=== PATIENT | female | born 1990 | race Caucasian/White ===

== ENCOUNTER → 2018-07-07 15:24 | Outpatient (CLI) | payer OTHER, MEDICAID, SELFPAY ==
[2018-07-07 16:06] LABS: Hematocrit 34.9 % (36-46); Hemoglobin 11.8 g/dL (12.0-16.0); Mean Corpuscular HGB Conc 33.8 % (30-36); Mean Corpuscular Hemoglobin 31.4 PG (26-34); Mean Corpuscular Volume 92.9 fL (80-100); Platelet Count 181 X10^3/uL (150-400); Red Blood Cell Count 3.76 X10^6/uL (4.0-5.2); White Blood Cell Count 7.3 X10^3/uL (4.5-11.0)
[2018-07-07 16:23] LABS: Eosinophils Percent Auto 1.3 % (2-4); Lymphocytes Percent Auto 27.8 % (25-40); Neutrophils Percent Auto 66.4 % (50-75)
[2018-07-07 16:24] LABS: Add Manual Diff / Slide Review NO; Basophils Percent Auto 0.5 % (0-2); Neutrophils Absolute Auto 4700 /uL (1500-7000)
[2018-07-07 16:25] LABS: Appearance Urine UA CLEAR; Bilirubin Urine UA NEGATIVE (NEGATIVE); Color Urine UA YELLOW; Glucose Urine UA NEGATIVE (Normal); Ketones Urine UA 2+ (NEGATIVE); Leukocyte Esterase Urine UA NEGATIVE (NEGATIVE); Nitrite Urine UA NEGATIVE (Negative); Occult Blood Urine UA NEGATIVE (Negative); Protein Urine UA TRACE (Negative); Specific Gravity Urine UA >=1.030 (1.000-1.035); Urobilinogen Urine UA 0.2 E.U./dL (0.2)
[2018-07-07 16:55] LABS: Glucose 77 mg/dL (70-100)
[2018-07-07 17:37] LABS: Hepatitis B Surface Antigen NEGATIVE s/c (NEGATIVE); Rubella Antibody IgG 29.3 IU/mL (>15)
[2018-07-07 17:54] LABS: HIV 1 and 2 Antibody NEGATIVE (NEGATIVE); Hep C Virus Ab w/Reflex Quant NEGATIVE s/c (NEGATIVE)
[2018-07-09 14:07] LABS: HSV 2 IGG AB < 0.90 index (< 0.90)
[2018-07-09 19:32] LABS: RPR Screen Nonreactive (Nonreactive)
== END ==
DX: Z13.79 Encounter for other screening for genetic and chromosomal anomalies (principal); Z34.91 Encounter for supervision of normal pregnancy, unspecified, first trimester; Z34.81 Encounter for supervision of other normal pregnancy, first trimester
CPT/HCPCS: 36415; 80055; 81003; 82947; 83036; 84163; 84702; 86695; 86696; 86703; 86787; 86803; 86850; 86900; 86901; 87086

== ENCOUNTER → 2018-08-04 14:07 | Outpatient (CLI) | payer OTHER, MEDICAID, SELFPAY | PROVIDERS: PCP Specialist | DX: Z34.82 Encounter for supervision of other normal pregnancy, second trimester (principal); Z3A.16 16 weeks gestation of pregnancy | CPT/HCPCS: 36415; 82105; 82677; 84163; 84702; 86336 ==

== ENCOUNTER → 2018-12-08 11:33 | Outpatient (CLI) | payer OTHER, MEDICAID, SELFPAY ==
[2018-12-09 16:24] LABS: Strep Grp B PCR NEG for Grp B Strep
== END ==
PROVIDERS: PCP Specialist
DX: Z34.83 Encounter for supervision of other normal pregnancy, third trimester (principal); Z3A.35 35 weeks gestation of pregnancy
CPT/HCPCS: 87653

== ENCOUNTER 2019-01-12 06:06 | Inpatient (IN) | payer OTHER, MEDICAID, SELFPAY ==
[2019-01-12] MEDS: OXYTOCIN PREMIX 30 UNIT/500 ML PLAST..BAG IV (07:15)
[2019-01-12] MEDS: LACTATED RINGERS 1,000 ML 100 ML IV ×2 (07:15→14:10)
[2019-01-12 07:32] LABS: Add Manual Diff / Slide Review NO; Basophils Absolute Auto 0 /uL (0-100); Basophils Percent Auto 0.4 % (0-2); Eosinophils Absolute Auto 200 /uL (0-450); Eosinophils Percent Auto 1.6 % (2-4); Hematocrit 29.5 % (36-46); Lymphocytes Absolute Auto 2400 /uL (1100-4500); Lymphocytes Percent Auto 24.7 % (25-40); Mean Corpuscular HGB Conc 33.9 % (30-36); Mean Corpuscular Hemoglobin 31.1 PG (26-34); Mean Corpuscular Volume 91.7 fL (80-100); Monocytes Absolute Auto 700 /uL (0-900); Monocytes Percent Auto 6.8 % (3-14); Neutrophils Absolute Auto 6400 /uL (1500-7000); Neutrophils Percent Auto 66.5 % (50-75); Platelet Count 139 X10^3/uL (150-400); Red Blood Cell Count 3.22 X10^6/uL (4.0-5.2); Red Cell Distribution Width 13.2 % (11.6-14.8); White Blood Cell Count 9.6 X10^3/uL (4.5-11.0)
[2019-01-12 09:52] VITALS: BP 120/79
--- NOTE | 2019-01-12 12:19 | PM.OBHP.1 ---
OB HPI Date/Time Date of admission: 01/12/19 Date Patient Seen: 01/12/19 Time Patient Seen: 10:00 History of Present Condition Chief complaint: EVALUATION OF LABOR - INDUCTION : 2 Para: 1 Estimated Date of Delivery: 01/11/19 Estimated Gestational Age (weeks): 40 wee Narrative: Mariam Das is a 28 year old female who presents today at 40 weeks of for induction of labor. Her cervix was 2+ cm dilated 80% effaced vertex minus two station with the cervix mid anterior and soft. Indications Indication for induction OB: maternal discomfort and history of rapid labor History of Present care: good care Dating criteria: LMP confirmed by 1st trimester US Ultrasounds: normal 1st trimester US and normal mid trimester US Obstetrical complications: none Medical complications: none Narrative: Patient is a 28-year-old two para one with an uneventful . Her total weight gain was 22 lb. She had normal fundal growth. Her blood pressures remained normotensive. Her urines remain negative for glucose and protein. Preadmission Labs Blood type: 0 (-) negative -: Antibody screen: negative, Cystic fibrosis screen: unknown, GBS status: negative, HBsAG: negative, HIV: negative, HSV 1: negative, HSV 2: negative and RPR/VDLR: negative -: Chlamydia screen: detected (Negative) and Gonorrhea screen: detected (Negative) -: Rubella: immune and Varicella: immune HCT: 29 HCAB: negative PAP: Normal Integrated screen: Negative Sequential screen: Negative 1 hr GTT: 149 Evaluation Evaluation Baseline heart rate: 140 Variability: Average (6-10) monitor accelerations: Present monitor decelerations: Absent Contraction Frequency (minutes): 3 Uterine Contraction Intensity: Mild Category of Tracing: I Cervical dilation (cm): 2 Cervical effacement (%): 80 station: -2 Laboratory results: Laboratory Tests 01/12/19 01/12/19 07:10 07:10 WBC 9.6 RBC 3.22 L Hgb 10.0 L Hct 29.5 L MCV 91.7 MCH 31.1 MCHC 33.9 RDW 13.2 Plt Count 139 L Neut % (Auto) 66.5 Lymph % (Auto) 24.7 L [place] % (Auto) 6.8 Eos % (Auto) 1.6 L Baso % (Auto) 0.4 Neut # (Auto) 6400 Lymph # (Auto) 2400 [place] # (Auto) 700 Eos # (Auto) 200 Baso # (Auto) 0 Blood Type B Negative Antibody Screen Negative Comments: Membranes ruptured with amnio hook [facility] Social History Smoking Status: Current every day smoker Social History Smoking Status: Current every day smoker Meds Home Medications Medication Instructions Recorded Confirmed Type 1 tab PO DAILY 07/07/18 01/12/19 History vitamin,calcium,xcteljly-yxod-trclk acid tablet Allergies Allergy/AdvReac Type Severity Reaction Status Date / Time No Known Drug Allergies Allergy Verified 01/12/19 09:54 Review of Systems Review of Systems All systems reviewed & are unremarkable except as noted in HPI and below Exam Vital Signs (past 8 hours): - 01/12/19 09:52 Blood Pressure 120/79 Const General: cooperative and healthy appearing [facility] Head: normal to inspection Ears: hearing grossly normal bilaterally Nose: external nose normal Face and sinus: normal facial exam Mouth: oral mucosae normal, lip normal, tongue normal and moist mucous membranes Teeth and gingiva: dentition normal Throat: posterior oropharynx normal Eyes General: appearance normal, both eyes and all related structures Neck Neck: normal visual inspection and full ROM Chest Chest: normal inspection of the chest and normal palpation of entire chest wall Breast inspection: normal inspection of the breasts and normal inspection of the axillae Breast Palpation: normal palpation of the breasts and normal palpation of the axillae Resp Effort & Inspection: normal respiratory effort Auscultation: clear to auscultation bilaterally Cardio Palpation: normal PMI Rate: regular rate Rhythm: regular rhythm Heart Sounds: S1 normal and S2 normal GI Inspection: normal to inspection Palpation: soft and no hepatosplenomegaly Percussion: normal to percussion Auscultation: normal bowel sounds OB/External & Speculum: external exam normal Manual OB Exam: dilated 2, effaced 50% and station -2 Uterus Location (Fundal Height): 40 Presentation: vertex Estimated Weight (lbs): 7 Amniotic Fluid: clear Back/Spine/Pelvis Thoracic/Lumbar Spine: thoracic and lumbar spine normal to inspection Skin General: no rashes or lesions noted Neuro General: alert, oriented x3, tone normal and moves all extremities Cognition: normal cognition Speech: speech normal Gait: normal gait Motor: muscle tone normal throughout Sensory Exam: no sensory deficits noted Extrem General: normal to inspection and normal exam except as noted Psych Appearance: grossly normal and well kempt Mental Status: mental status grossly normal Speech and Movement: speech and movement normal Objective Labs Result Diagrams: 01/12/19 07:10 Labs: Laboratory Results - last 24 hr 01/12/19 01/12/19 07:10 07:10 WBC 9.6 RBC 3.22 L Hgb 10.0 L Hct 29.5 L MCV 91.7 MCH 31.1 MCHC 33.9 RDW 13.2 Plt Count 139 L Neut % (Auto) 66.5 Lymph % (Auto) 24.7 L [place] % (Auto) 6.8 Eos % (Auto) 1.6 L Baso % (Auto) 0.4 Neut # (Auto) 6400 Lymph # (Auto) 2400 [place] # (Auto) 700 Eos # (Auto) 200 Baso # (Auto) 0 Blood Type B Negative Antibody Screen Negative Assessment and Plan Assessment and Plan Assessment and Plan narrative: Term intrauterine 40 weeks Living in the [facility] long distance from the hospital Favorable cervix with Garcia score of eight Plan is for Pitocin induction of labor and artificial rupture
--- NOTE | 2019-01-12 12:30 | P.HPOB_ITS ---
OB HPI Date/Time Date of admission: 01/12/19 Date Patient Seen: 01/12/19 Time Patient Seen: 10:00 History of Present Condition Chief complaint: EVALUATION OF LABOR - INDUCTION : 2 Para: 1 Estimated Date of Delivery: 01/11/19 Estimated Gestational Age (weeks): 40 wee Narrative: Mariam Das is a 28 year old female who presents today at 40 weeks of for induction of labor. Her cervix was 2+ cm dilated 80% effaced vertex minus two station with the cervix mid anterior and soft. Indications Indication for induction OB: maternal discomfort and history of rapid labor History of Present care: good care Dating criteria: LMP confirmed by 1st trimester US Ultrasounds: normal 1st trimester US and normal mid trimester US Obstetrical complications: none Medical complications: none Narrative: Patient is a 28-year-old two para one with an uneventful . Her total weight gain was 22 lb. She had normal fundal growth. Her blood pressures remained normotensive. Her urines remain negative for glucose and protein. Preadmission Labs Blood type: 0 (-) negative -: Antibody screen: negative, Cystic fibrosis screen: unknown, GBS status: negative, HBsAG: negative, HIV: negative, HSV 1: negative, HSV 2: negative and RPR/VDLR: negative -: Chlamydia screen: detected (Negative) and Gonorrhea screen: detected (Negative) -: Rubella: immune and Varicella: immune HCT: 29 HCAB: negative PAP: Normal Integrated screen: Negative Sequential screen: Negative 1 hr GTT: 149 Evaluation Evaluation Baseline heart rate: 140 Variability: Average (6-10) monitor accelerations: Present monitor decelerations: Absent Contraction Frequency (minutes): 3 Uterine Contraction Intensity: Mild Category of Tracing: I Cervical dilation (cm): 2 Cervical effacement (%): 80 station: -2 Laboratory results: Laboratory Tests 01/12/19 01/12/19 07:10 07:10 WBC 9.6 RBC 3.22 L Hgb 10.0 L Hct 29.5 L MCV 91.7 MCH 31.1 MCHC 33.9 RDW 13.2 Plt Count 139 L Neut % (Auto) 66.5 Lymph % (Auto) 24.7 L [place] % (Auto) 6.8 Eos % (Auto) 1.6 L Baso % (Auto) 0.4 Neut # (Auto) 6400 Lymph # (Auto) 2400 [place] # (Auto) 700 Eos # (Auto) 200 Baso # (Auto) 0 Blood Type B Negative Antibody Screen Negative Comments: Membranes ruptured with amnio hook [facility] Social History Smoking Status: Current every day smoker Social History Smoking Status: Current every day smoker Meds Home Medications Medication Instructions Recorded Confirmed Type 1 tab PO DAILY 07/07/18 01/12/19 History vitamin,calcium,putirqsu-aalu-gjusw acid tablet Allergies Allergy/AdvReac Type Severity Reaction Status Date / Time No Known Drug Allergies Allergy Verified 01/12/19 09:54 Review of Systems Review of Systems All systems reviewed & are unremarkable except as noted in HPI and below Exam Vital Signs (past 8 hours): - 01/12/19 09:52 Blood Pressure 120/79 Const General: cooperative and healthy appearing [facility] Head: normal to inspection Ears: hearing grossly normal bilaterally Nose: external nose normal Face and sinus: normal facial exam Mouth: oral mucosae normal, lip normal, tongue normal and moist mucous membranes Teeth and gingiva: dentition normal Throat: posterior oropharynx normal Eyes General: appearance normal, both eyes and all related structures Neck Neck: normal visual inspection and full ROM Chest Chest: normal inspection of the chest and normal palpation of entire chest wall Breast inspection: normal inspection of the breasts and normal inspection of the axillae Breast Palpation: normal palpation of the breasts and normal palpation of the axillae Resp Effort & Inspection: normal respiratory effort Auscultation: clear to auscultation bilaterally Cardio Palpation: normal PMI Rate: regular rate Rhythm: regular rhythm Heart Sounds: S1 normal and S2 normal GI Inspection: normal to inspection Palpation: soft and no hepatosplenomegaly Percussion: normal to percussion Auscultation: normal bowel sounds OB/External & Speculum: external exam normal Manual OB Exam: dilated 2, effaced 50% and station -2 Uterus Location (Fundal Height): 40 Presentation: vertex Estimated Weight (lbs): 7 Amniotic Fluid: clear Back/Spine/Pelvis Thoracic/Lumbar Spine: thoracic and lumbar spine normal to inspection Skin General: no rashes or lesions noted Neuro General: alert, oriented x3, tone normal and moves all extremities Cognition: normal cognition Speech: speech normal Gait: normal gait Motor: muscle tone normal throughout Sensory Exam: no sensory deficits noted Extrem General: normal to inspection and normal exam except as noted Psych Appearance: grossly normal and well kempt Mental Status: mental status grossly normal Speech and Movement: speech and movement normal Objective Labs Result Diagrams: 01/12/19 07:10 Labs: Laboratory Results - last 24 hr 01/12/19 01/12/19 07:10 07:10 WBC 9.6 RBC 3.22 L Hgb 10.0 L Hct 29.5 L MCV 91.7 MCH 31.1 MCHC 33.9 RDW 13.2 Plt Count 139 L Neut % (Auto) 66.5 Lymph % (Auto) 24.7 L [place] % (Auto) 6.8 Eos % (Auto) 1.6 L Baso % (Auto) 0.4 Neut # (Auto) 6400 Lymph # (Auto) 2400 [place] # (Auto) 700 Eos # (Auto) 200 Baso # (Auto) 0 Blood Type B Negative Antibody Screen Negative Assessment and Plan Assessment and Plan Assessment and Plan narrative: Term intrauterine 40 weeks Living in the [facility] long distance from the hospital Favorable cervix with Garcia score of eight Plan is for Pitocin induction of labor and artificial rupture
--- NOTE | 2019-01-12 16:05 | PM.OBPNLAB ---
Date/Time Date Patient Seen: 01/12/19 Time Patient Seen: 16:05 Pain Control Pain control: tolerating well and epidural Pelvic Exam Dilation (cm): 6 Effacement (%): 100 station: 0 Amniotic membrane status: Ruptured Comments: good progress Contractions Contractions on admission: regular Monitor mode: External Pitocin rate (mU/min): 18 Contraction frequency (min): 2 Contraction duration (min): 60 Contraction pattern: Regular Contraction phase: Resting Contraction intensity: Strong/Firm Status status: Category l Heart Rate Baseline: 140 Monitor Accelerations: Present Monitor Decelerations: Absent Monitor Variability: Moderate Assessment and Plan Assessment: active labor Plan: continuous present management
--- NOTE | 2019-01-12 17:43 | PM.OBPRVD ---
Delivery date: 01/12/19 Intrapartal events: None Cervical ripening method: none Induction method: per pitocin protocol Delivery augmentation: rupture of membranes Delivery monitor: external FHT and external uterine Route of delivery: L&D Laceration Description: None Estimated blood loss (mL): 300 Anesthesia type: Epidural Complications: none Narrative: The patient is a 28-year-old two para one. Patient is at 40 weeks one day. Patient had a favorable cervix and lives in [facility]. Patient was admitted for induction of labor. Pitocin was begun. Membranes are ruptured approximately 10:00 a.m.. Patient made good progress to complete. At 5 cm and epidural was placed. Patient pushed once and delivered a live-born male infant with scores of nine at 1 minutes and nine at 5 minutes in good condition. Cord blood was obtained. Cord had three vessels. There is a nuchal cord x2. There were no cervical vaginal or perineal lacerations. Estimated blood loss is 300 cc Plan for aftercare: Routine
[2019-01-12] MEDS: NICOTINE 7 MG PATCH TOP (20:50)
[2019-01-13 05:37] LABS: Hematocrit 25.7 % (36-46); Hemoglobin 8.7 g/dL (12.0-16.0)
[2019-01-13] MEDS: IBUPROFEN 600 MG TABLET PO ×2 (06:11→12:31)
[2019-01-13] MEDS: DOCUSATE 250 MG CAPSULE PO (07:28)
[2019-01-13] MEDS: PRENATAL VIT,CALC/IRON/FOLIC 1 TABLET 1 TAB PO (07:28)
--- NOTE | 2019-01-13 10:27 | P.DS_ITS ---
Discharge Providers Date of admission: 01/12/19 06:06 Discharge Date: 01/13/19 Primary care physician: Birgit Coburn MD Consults: 01/12/19 19:12 Consult to Global Marketing Coordinator Routine Comment: Discharge provider: Eduar Mendes MD Summary Date Patient Seen: 01/13/19 Time Patient Seen: 10:22 Procedures: Induction of labor Spontaneous vaginal delivery Hospital Course: The patient is a 28-year-old two now para two who was admitted for elective induction of labor because of distance from the hospital at term with a favorable cervix. Patient's Garcia score was eight. Pitocin was begun. Membranes are ruptured. The fluid was clear. Epidural catheter was placed. Patient made progress to complete and with one push delivered spontaneously an 8 lb 9 oz live-born male with scores of nine at 1 minute nine at 5 minutes in good condition. The placenta delivered spontaneously. Cord had three vessels. Estimated blood loss was 300 cc. There were no cervical vaginal or perineal tears. Post delivery the patient did well. She remained afebrile stable vital signs. She was progressively element and ambulated. She was discharged home for follow-up in six weeks in [place] Peripartum Data Infant Delivery Method: Natural Vaginal Laceration description: None Procedures: Spontaneous vaginal delivery Induction of labor Epidural anesthesia complications: none Status at Discharge Cognitive/behavioral status at discharge: oriented Functional status at discharge: independent ambulation Overall status at discharge: patient is progressing back to baseline Time Spent with Patient Total time spent providing and/or coordinating discharge services: Less than 30 minutes Objective Labs Result Diagrams: 01/13/19 05:14 Labs: Laboratory Results - last 24 hr 01/13/19 05:14 Hgb 8.7 L Hct 25.7 L Exam Vital Signs (past 8 hours): Fundus U minus two Lochia scant Extremities without edema Discharge Plan Discharge Plan Patient Disposition: Home Discharge comment: Follow-up in [place] the Friday the 02 of March Discharge Med Rec/Prescriptions Prescriptions: New Dermoplast (with menthol) 20-0.5 % Aerosol 1 spray topical Q1HR PRN (Reason: perineal pain) Qty: 1 RF: 0 hydrocodone-acetaminophen 5-325 mg Tablet 1 tab PO Q4HR Qty: 10 RF: 0 ibuprofen 600 mg Tablet 600 mg PO Q6HR PRN (Reason: Pain, Mild (1-3)) Qty: 14 RF: 0 docusate sodium 250 mg Capsule 250 mg PO DAILY Qty: 10 RF: 0 Ksu-D-Dmwrpe Cream 1 applic topical PRN PRN (Reason: Tenderness) Qty: 1 RF: 0 ferrous gluconate 324 mg (38 mg iron) Tablet 324 mg PO DAILY Qty: 60 RF: 0 Continued prenat.vits,bianca,trk-agvd-lxphf tablet 1 tab PO DAILY RF: 0 Follow up/Referrals: Birgit Coburn MD [Primary Care Provider] - Eduar Mendes MD [Physician] - 03/02/19 Provider Discharge Instructions Diet: Diet as Tolerated Activity: Up ad pam Skin/Wound/Dressing Care Report to your healthcare provider any signs of infection, such as:: chills, fever, increased pain, unusual drainage and unusual redness Discharge Data Primary Care Provider: Birgit Coburn Attending Provider: Eduar Mendes Admit Date/Time: 01/12/19 06:06
[2019-01-13 12:58] VITALS: BP 128/82; PULSE 73; RESP 16; TEMP 37.2
== END 2019-01-13 16:25 | disposition home or self-care (01) | DRG 560 ==
PROVIDERS: PCP Specialist
DX: O26.813 Pregnancy related exhaustion and fatigue, third trimester (principal); O69.81X0 Labor and delivery complicated by cord around neck, without compression, not applicable or unspecified; Z3A.40 40 weeks gestation of pregnancy; Z37.0 Single live birth
CPT/HCPCS: 01967; 36415; 59050; 59409; 85014; 85018; 85025; 86850; 86900; 86901; J2590

== ENCOUNTER → 2025-04-26 13:50 | Outpatient (CLI) | payer OTHER, SELFPAY ==
[2025-04-26 14:36] LABS: Add Manual Diff / Slide Review NO; Hematocrit 36.2 % (36-46); Hemoglobin 12.5 g/dL (12.0-16.0); Lymphocytes Absolute Auto 2600 /uL (1100-4500); Mean Corpuscular HGB Conc 34.4 % (30-36); Mean Corpuscular Hemoglobin 30.1 PG (26-34); Mean Corpuscular Volume 87.5 fL (80-100); Platelet Count 217 X10^3/uL (150-400)
== END ==
PROVIDERS: PCP Specialist; Referring Provider Registered Nurse; Visit Provider Registered Nurse
DX: Z79.899 Other long term (current) drug therapy (principal)
CPT/HCPCS: 36415; 80159; 85025

== ENCOUNTER 2025-05-03 11:28 | Emergency (ER) | payer OTHER, SELFPAY ==
[2025-05-03] VITALS (17 sets, daily range): BP systolic 128–167; BP diastolic 67–93; PULSE 80–105; RESP 10–20; TEMP 36.9–37.1; O2SAT 94–100; BMI 35.4
--- NOTE | 2025-05-03 11:57 | EKG_ITS ---
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
--- NOTE | 2025-05-03 11:57 | DI.RAD.S_ITS ---
PROCEDURE: XR CHEST 1V INDICATIONS: chest pain TECHNIQUE: One view of the chest was acquired. COMPARISON: None. FINDINGS: Mild bilateral perihilar and lower lobe peribronchial thickening, some of which may be related expiratory result; however, bronchitis, viral infection, asthma or other process should be considered. Mild dextroscoliosis. Cardiopericardial silhouette and pulmonary vasculature within normal limits. No pneumothorax, no pleural effusion, no lobar consolidation. IMPRESSION: Mild peribronchial thickening as discussed above. If symptoms persist or worsen, or there is high clinical suspicion of thoracic abnormality, CT chest could be performed. Dictated by: Luc Bennett M.D. on 05/03/2025 at 12:59 Approved by: Luc Bennett M.D. on 05/03/2025 at 13:02
--- NOTE | 2025-05-03 12:06 | ED.ABDPAIN ---
HPI - Abdominal Pain <Birgit María, - Last Filed: 05/04/25 07:48> General Chief Complaint: Abdominal Pain Stated Complaint: N/V numbness left side of face, chest pain Time Seen by Provider: 05/03/25 11:56 Source: patient Mode of arrival: Ambulatory History of Present Illness HPI narrative: Patient is a 34-year-old female history of PTSD, depression, methamphetamine use presenting today with her mother with left-sided numbness nausea vomiting chest pain and ongoing abdominal pain. Initially mom and patient were concerned she might be she has not had her menstrual period since October but taken multiple home tests that were all negative. She has had nausea abdominal pain which really have continued and today she has some left-sided numbness on her left face left arm and left leg. No significant weakness. She has been hospitalized at [facility]. She has had significant reactions to medications in the past causing hallucinations anxieties and auditory hallucinations. She has recently been started on fluphenazine buspirone duloxetine along with clozapine these all and started last month. She is followed closely by [facility] and pact team they actually called our emergency department when they received her ED report concern that some of her symptoms maybe caused by medication. Related Data Home Medications ?Medication ?Instructions ?Recorded ?Confirmed prenat.vits,bianca,[id number] 1 tab PO DAILY 07/07/18 03/02/19 Previous Rx's ?Medication ?Instructions ?Recorded benzocaine 20 %-menthol 0.5 % 1 spray topical Q1HR PRN perineal 01/13/19 topical aerosol (Dermoplast (with pain #1 g menthol)) docusate sodium 250 mg capsule 250 mg PO DAILY #10 caps 01/13/19 ferrous gluconate 324 mg (38 mg 324 mg PO DAILY #60 tabs 01/13/19 iron) tablet ibuprofen 600 mg tablet 600 mg PO Q6HR PRN Pain, Mild 01/13/19 (1-3) #14 tabs lanolin (Gsd-I-Uzfwoe topical 1 applic topical PRN PRN 01/13/19 cream) Tenderness #1 g apixaban 5 mg (74 tabs) tablets in 5 mg PO BID #74 ea 05/03/25 a dose pack (Eliquis DVT-PE Treat 30D Start) Allergies Allergy/AdvReac Type Severity Reaction Status Date / Time ibuprofen Allergy Hives Verified 05/03/25 11:36 Patient History <Birgit Daniel, DO - Last Filed: 05/04/25 07:48> Social History Smoking Status: Current every day smoker Smoking Status: Current every day smoker tobacco type: vaping Exam <Birgit Danile, DO - Last Filed: 05/04/25 07:48> Initial Vital Signs Initial Vital Signs: Vital Signs Temperature 98.7 F 05/03/25 11:35 Pulse Rate 105 H 05/03/25 11:35 Respiratory Rate 20 05/03/25 11:35 Blood Pressure 140/87 05/03/25 11:35 Pulse Oximetry 95 05/03/25 11:35 Oxygen Delivery Method Room Air 05/03/25 11:35 GENERAL: Alert well-appearing 34-year-old female and in no acute distress. HEENT: Head atraumatic,EOMI, pupils reactive, face symmetric, moist mucous membranes CARDIOVASCULAR: Regular rate and rhythm without murmurs, rubs or gallops. RESPIRATORY: Breath sounds equal bilaterally, no wheezes rales or rhonchi. ABDOMEN: Soft, nontender. Normoactive bowel sounds all 4 quadrants. No guarding or rebound. EXTREMITIES: Normal range of motion, no clubbing or edema. Neurovascularly intact NEUROLOGICAL: Alert and oriented x4.Normal gait and speech. Cranial nerves II through XII grossly intact. No ataxia is decreased sensation left face left arm left leg SKIN: Warm, dry, no laceration, no petechiae, no rashes or lesions. <Jerod Snow, DO - Last Filed: 05/03/25 17:13> Initial Vital Signs Initial Vital Signs: Vital Signs Temperature 98.7 F 05/03/25 11:35 Pulse Rate 105 H 05/03/25 11:35 Respiratory Rate 20 05/03/25 11:35 Blood Pressure 140/87 05/03/25 11:35 Pulse Oximetry 95 05/03/25 11:35 Oxygen Delivery Method Room Air 05/03/25 11:35 Scores <Birgit Daniel DO - Last Filed: 05/04/25 07:48> NIH Stroke Scale Level of Conciousness: Alert, keenly responsive Ask month/age: Answers both questions correctly. Open/close eyes, close hand: Performs both tasks correctly Best gaze horizontal: Normal Visual rubio: No visual loss Facial palsy: Normal symetrical movement Left arm drift: No drift for full 10 sec Right arm drift: No drift for full 10 sec Left leg drift: No drift for full 5 sec Right leg drift: No drift for full 5 sec Limb ataxia: Absent Sensory on face/arms/legs: Mild to moderate sensory loss, can tell touch Best language: No aphasia, normal Dysarthria: Normal Extinction or inattention: No abnormality Total NIH Stroke scale score: 1 Course <Birgit Daniel, - Last Filed: 05/04/25 07:48> Orders Ordered: Discontinued Medications Apixaban (Apixaban 5 Mg Tablet) 5 mg PO NOW ONE Stop: 05/03/25 16:23 Last Admin: 05/03/25 16:32 Dose: 5 mg Documented By: EB Buprenorphine/Naloxone (Buprenorphine/Naloxone 8mg/2mg 1 Tab) 1 tab SL DAILY TRANG Famotidine (Famotidine 20 Mg Tablet) 20 mg PO BEDTIME TRANG Sodium Chloride (Normal Saline 0.9%) 1,000 mls @ 1,000 mls/hr IV BOLUS ONE Stop: 05/03/25 15:15 Last Infusion: 05/03/25 17:35 Dose: Infused Documented By: Admin: 05/03/25 14:29 Dose: 1,000 mls/hr Documented By: EB Acetaminophen (Ofirmev) 1,000 mg in 100 mls @ 400 mls/hr IV NOW ONE Stop: 05/03/25 14:31 Last Infusion: 05/03/25 15:11 Dose: Infused Documented By: Admin: 05/03/25 14:29 Dose: 400 mls/hr Documented By: EB Lorazepam (Lorazepam 2 Mg/Ml Inj) 1 mg IV NOW ONE Stop: 05/03/25 14:17 Last Admin: 05/03/25 14:29 Dose: 1 mg Documented By: EB Lorazepam (Lorazepam 2 Mg/Ml Inj) 1 mg IV NOW ONE Stop: 05/03/25 16:26 Last Admin: 05/03/25 16:33 Dose: 1 mg Documented By: EB Non-Formulary Medication (Suboxone) 8 mg SL TID TRANG Non-Formulary Medication (Fluphenazine) 10 mg PO DAILY TRANG Clozaril 200 Mg (Tablet) 200 mg PO DAILY@1700 TRANG Fluphenazine 10 Mg (Tablet) 10 mg PO DAILY@1700 TRANG Suboxone 8mg/2mg Sl (Film) 1 mg SL TID TRANG Last Admin: 05/03/25 16:32 Dose: 1 mg Documented By: EB Vital Signs Vital signs: Vital Signs - 8 hr 05/03/25 11:35 05/03/25 13:37 05/03/25 13:38 Temperature 98.7 F Pulse Rate 105 H 105 H Respiratory Rate 20 Blood Pressure 140/87 137/73 Pulse Oximetry 95 95 Oxygen Delivery Method Room Air <Jerod Snow, DO - Last Filed: 05/03/25 17:13> Orders Ordered: Discontinued Medications Apixaban (Apixaban 5 Mg Tablet) 5 mg PO NOW ONE Stop: 05/03/25 16:23 Last Admin: 05/03/25 16:32 Dose: 5 mg Documented By: EB Buprenorphine/Naloxone (Buprenorphine/Naloxone 8mg/2mg 1 Tab) 1 tab SL DAILY [facility] Famotidine (Famotidine 20 Mg Tablet) 20 mg PO BEDTIME [facility] Sodium Chloride (Normal Saline 0.9%) 1,000 mls @ 1,000 mls/hr IV BOLUS ONE Stop: 05/03/25 15:15 Last Infusion: 05/03/25 17:35 Dose: Infused Documented By: Admin: 05/03/25 14:29 Dose: 1,000 mls/hr Documented By: EB Acetaminophen (Ofirmev) 1,000 mg in 100 mls @ 400 mls/hr IV NOW ONE Stop: 05/03/25 14:31 Last Infusion: 05/03/25 15:11 Dose: Infused Documented By: Admin: 05/03/25 14:29 Dose: 400 mls/hr Documented By: EB Lorazepam (Lorazepam 2 Mg/Ml Inj) 1 mg IV NOW ONE Stop: 05/03/25 14:17 Last Admin: 05/03/25 14:29 Dose: 1 mg Documented By: EB Lorazepam (Lorazepam 2 Mg/Ml Inj) 1 mg IV NOW ONE Stop: 05/03/25 16:26 Last Admin: 05/03/25 16:33 Dose: 1 mg Documented By: TANESHA Non-Formulary Medication (Suboxone) 8 mg SL TID [facility] Non-Formulary Medication (Fluphenazine) 10 mg PO DAILY [facility] Clozaril 200 Mg (Tablet) 200 mg PO DAILY@1700 [facility] Fluphenazine 10 Mg (Tablet) 10 mg PO DAILY@1700 [facility] Suboxone 8mg/2mg Sl (Film) 1 mg SL TID [facility] Last Admin: 05/03/25 16:32 Dose: 1 mg Documented By: TANESHA Vital Signs Vital signs: Vital Signs - 8 hr 05/03/25 11:35 05/03/25 13:37 05/03/25 13:38 Temperature 98.7 F Pulse Rate 105 H 105 H Respiratory Rate 20 Blood Pressure 140/87 137/73 Pulse Oximetry 95 95 Oxygen Delivery Method Room Air MDM - Abdominal Pain <Birgit Daniel DO - Last Filed: 05/04/25 07:48> Lab Data 05/03/25 12:35 05/03/25 12:35 Labs: Lab Results 05/03/25 05/03/25 05/03/25 Range/Units 12:00 12:35 12:38 WBC 6.2 (4.5-11.0) X10^3/uL RBC 4.14 (4.0-5.2) X10^6/uL Hgb 12.3 (12.0-16.0) g/dL Hct 36.3 (36-46) % MCV 87.8 (80-100) fL MCH 29.6 (26-34) PG MCHC 33.8 (30-36) % RDW 12.9 (11.6-14.8) % Plt Count 189 (150-400) X10^3/uL Neut % (Auto) 62.9 (50-75) % Lymph % (Auto) 25.1 (25-40) % [place] % (Auto) 6.9 (3-14) % Eos % (Auto) 4.7 H (2-4) % Baso % (Auto) 0.4 (0-2) % Neut # (Auto) 3900 (0965-1124) /uL Lymph # (Auto) 1600 (4841-0288) /uL [place] # (Auto) 400 (0-900) /uL Eos # (Auto) 300 (0-450) /uL Baso # (Auto) 0 (0-100) /uL PT 11.8 (9.4-12.5) SECONDS INR 1.0 (0.9-1.3) APTT 32 (25.1-36.5) SECONDS Sodium 135 L (137-145) mmol/L Potassium 4.6 (3.4-5.1) mmol/L Chloride 102 (98-107) mmol/L Carbon Dioxide 24 (22-32) mmol/L BUN 10 (7-17) mg/dL Creatinine 0.63 (0.52-1.04) mg/dL Estimated GFR > 60 (>60) mL/min BUN/Creatinine Ratio 15.9 (6-22) Glucose 131 H (70-99) mg/dL Calcium 9.1 (8.4-10.2) mg/dL Magnesium 1.6 (1.6-2.3) mg/dL Total Bilirubin 0.2 (0.2-1.3) mg/dL AST 27 (14-36) IU/L ALT 13 (<35) IU/L Alkaline Phosphatase 64 (38-126) U/L Troponin I < 0.012 (0.01-0.034) ng/mL NT-Pro-B Natriuret Pep 190 H (<125) pg/mL Total Protein 7.4 (6.3-8.2) g/dL Albumin 4.2 (3.5-5.0) g/dL Globulin 3.2 (1.7-4.1) g/dL Albumin/Globulin Ratio 1.3 (1.0-2.8) Lipase 83 (23-300) U/L Salicylates < 1.0 (<20) mg/dL U Opiates 300ng/mL cut Negative (Negative) Ur Oxycodone Screen Negative (Negative) Urine Methadone Screen Negative (Negative) Acetaminophen < 10 (10-30) ug/mL Ur Barbiturates Screen Negative (Negative) U Tricyclic Antidepress Negative (Negative) Ur Phencyclidine Scrn Negative (Negative) Ur Amphetamines Screen Negative (Negative) U Methamphetamines Scrn Negative (Negative) Ur MDMA Scrn (Ecstasy) Negative (Negative) U Benzodiazepines Scrn Negative (Negative) Urine Cocaine Screen Negative (Negative) U Marijuana (THC) Screen Negative (Negative) Urine pH Normal (Normal) Urine Specific [place] Normal (Normal) Ethyl Alcohol < 10 (<10) mg/dL Ur Creatinine Normal (Normal) Point of care testing: Point of Care Testing Test Results Negative Urine Dip Bedside Urine Glucose Negative Bedside Urine Bilirubin - Negative Bedside Urine Ketone - Negative Urine Specific [place] 1.010 Bedside Urine Occult Blood - Negative Bedside Urine pH 6.5 Bedside Urine Protein - Negative Bedside Urine Urobilinogen - Negative Bedside Urine Nitrite - Negative Bedside Urine Leukocytes + 70 Esterase Imaging Data Chest x-ray: Radiologist's Impression: PROCEDURE: XR CHEST 1V INDICATIONS: chest pain TECHNIQUE: One view of the chest was acquired. COMPARISON: None. FINDINGS: Mild bilateral perihilar and lower lobe peribronchial thickening, some of which may be related expiratory result; however, bronchitis, viral infection, asthma or other process should be considered. Mild dextroscoliosis. Cardiopericardial silhouette and pulmonary vasculature within normal limits. No pneumothorax, no pleural effusion, no lobar consolidation. IMPRESSION: Mild peribronchial thickening as discussed above. If symptoms persist or worsen, or there is high clinical suspicion of thoracic abnormality, CT chest could be performed. Dictated by: Luc Bennett M.D. on 05/03/2025 at 12:59 CT scan - abdomen/pelvis: Radiologist's Impression: PROCEDURE: CT ABDOMEN PELVIS W CON INDICATIONS: ab pain on going nausea TECHNIQUE: After the administration of intravenous contrast, axial sections acquired from the lung bases to the pubic symphysis. Coronal and sagittal reformats were performed. For radiation dose reduction, the following was used: automated exposure control, adjustment of mA and/or kV according to patient size. COMPARISON: [facility], CT, CT ABDOMEN PELVIS WITH CONTRAST, 10/30/2022, 19:45. FINDINGS: Image quality: Diagnostic. Lower Chest: No significant findings. Small incidental hiatal hernia. Dependent atelectasis is noted. Right lower lobar and segmental pulmonary artery filling defects are noted. Possible segmental pulmonary artery filling defects in the left lower lobe. ABDOMEN: Liver: No solid mass. Gallbladder: No radiopaque gallstones or wall thickening. Biliary ducts: No biliary dilation. Pancreas: No ductal dilation. Spleen: Size is within normal limits. Adrenal Glands: No adrenal nodules. Kidneys and Ureters: No hydronephrosis. No solid mass. No complex renal cystic lesion which requires follow up. Stomach and Bowel: Normal colonic caliber, without significant wall thickening. Peritoneum: No abnormal intraperitoneal fluid. No free air. Ventral Wall: No significant ventral hernia. Abdominal Nodes: No retroperitoneal or mesenteric adenopathy by size criteria. Vessels: Aorta and inferior vena cava are normal in size. PELVIS: Pelvic Organs: Unremarkable. Bladder: No bladder wall thickening, accounting for underdistention. Pelvic Nodes: No enlarged lymph nodes. Miscellaneous: No inguinal hernias are seen. Bones: No aggressive osseous abnormality. Dextroscoliosis of the lower thoracic spine noted. IMPRESSION: No acute abnormality in abdomen or pelvis. Right lower lobar and segmental pulmonary artery filling defects. Possible subsegmental left lower lobe pulmonary artery filling defects. Imaging findings consistent with multifocal pulmonary emboli. Recommend CT pulmonary angiogram for more definitive evaluation of thrombus burden. Imaging findings and recommendations discussed with the ordering clinician at 3:11 p.m. On 05/03/2025. Dictated by: Yecenia Wagner M.D. on 05/03/2025 at 14:59 CT scan - head: Radiologist's Impression: PROCEDURE: CT HEAD/BRAIN WO CON INDICATIONS: left side numbness TECHNIQUE: Noncontrast 4.5 mm thick angled axial sections acquired from the foramen magnum to the vertex, with coronal and sagittal reformats. For radiation dose reduction, the following was used: automated exposure control, adjustment of mA and/or kV according to patient size. COMPARISON: [facility], CT, CT HEAD WITHOUT CONTRAST, 10/30/2022, 19:45. FINDINGS: Image quality: Diagnostic. CSF spaces: Basal cisterns are patent. No extra-axial fluid collections. Ventricles are normal in size and shape. Brain: No midline shift. No intracranial mass effect or hemorrhage. [place]-white matter interface is normal. Skull and face: Calvarium and visualized facial bones are intact, without suspicious lesions. Sinuses: Visualized sinuses and mastoids are clear. IMPRESSION: No imaging explanation is found for this patient's presenting symptoms. To the limits of this noncontrast study, no findings of intracranial masses or mass effect can be seen. No acute intracranial hemorrhage is seen. If there is strong clinical suspicion for an acute stroke, please consider a brain MRI for further evaluation, as it is more sensitive (assuming that there is no contraindication to MRI). Dictated by: Matt Mcpherson M.D. on 05/03/2025 at 13:59 ECG Data Attestation: I personally reviewed and interpreted this ECG as follows: Prior ECG tracings: not available for review Interpretation: Sinus rhythm rate 106 DC interval 148 QRS 84 QTC 470 no prolongation of QRS or QTC no arrhythmia or ischemia present no priors to compare MDM Narrative Medical decision making narrative: MDM CC: Left-sided numbness nausea vomiting Complicating co-morbidities: PTSD, mental health issues Data collected from: Patient, mother, records from [facility] Medical records reviewed: Records from [facility] reviewed Differential considered: Medication reaction gastroenteritis possible CVA anxiety Exam documented above, pertinent findings include: Alert well-appearing 34-year-old female mild abdominal discomfort no specific localization of pain she does have some decreased sensation on her left arm and leg NIH of 1 Lab Test results independently reviewed as above. Pertinent findings: CBC no leukocytosis no anemia no thrombocytopenia CMP sodium slightly low 135 potassium and other electrolytes within normal limits creatinine 0.63 no MAX glucose 131 Bilirubin liver enzymes within normal limits lipase 83 Troponin negative BNP is 190 Independently reviewed EKG as above Sinus rhythm without abnormality Imaging studies independently reviewed: CT abdomen pelvis shows pulmonary embolism in lower lobe but no abdominal abnormality Chest x-ray peribronchial thickening Head CT no intracranial process Consultations: Attempted to talk to [facility] nurse in regards to medication. Initially the nurse called us in the emergency department I tried to call her back and left a voicemail. Mom states that these medications she is actually doing pretty well with but not having any severe side effects or hallucinations Treatments: IV Tylenol fluids and lorazepam, patient took her own Suboxone Re-evaluations: [ ] Discussion: Patient 34-year-old female history of mental health presenting today with left-sided numbness she has no weakness or vision changes. She had an NIH of 1 low suspicion for CVA but still possible. Initial noncontrasted head CT was negative. Blood work is overall reassuring she really has no abnormalities. Surprisingly her abdominal CT does show lower segmental pulmonary emboli. Dedicated CT chest was ordered. Unclear at this time why she would have pulmonary emboli. She is not on control she was hospitalized 10 months ago. She has been home for 3 weeks. Patient signed out to Dr. Snow, for further disposition All lab work, vital signs, nurse triage note, medication list, previous ER visits, and all imaging studies reviewed. CTA showed positive for lobar segmental and subsegmental right upper middle and lower lobe pulmonary emboli. Subsegmental left upper lobe. Pulmonary emboli negative heart strain. Patchy areas of ground-glass opacities in the bilateral lobe due to multifocal pulmonary emboli or infection. CT head showed no acute process. CT abdomen and pelvis showed no acute process. Ultrasound lower leg did not show any DVT. Patient given Ativan Eliquis here and will be discharged on Eliquis. <Jerod Snow, DO - Last Filed: 05/03/25 17:13> Lab Data Labs: Lab Results 05/03/25 05/03/25 05/03/25 Range/Units 12:00 12:35 12:38 WBC 6.2 (4.5-11.0) X10^3/uL RBC 4.14 (4.0-5.2) X10^6/uL Hgb 12.3 (12.0-16.0) g/dL Hct 36.3 (36-46) % MCV 87.8 (80-100) fL MCH 29.6 (26-34) PG MCHC 33.8 (30-36) % RDW 12.9 (11.6-14.8) % Plt Count 189 (150-400) X10^3/uL Neut % (Auto) 62.9 (50-75) % Lymph % (Auto) 25.1 (25-40) % [place] % (Auto) 6.9 (3-14) % Eos % (Auto) 4.7 H (2-4) % Baso % (Auto) 0.4 (0-2) % Neut # (Auto) 3900 (1593-8173) /uL Lymph # (Auto) 1600 (1941-0985) /uL [place] # (Auto) 400 (0-900) /uL Eos # (Auto) 300 (0-450) /uL Baso # (Auto) 0 (0-100) /uL PT 11.8 (9.4-12.5) SECONDS INR 1.0 (0.9-1.3) APTT 32 (25.1-36.5) SECONDS Sodium 135 L (137-145) mmol/L Potassium 4.6 (3.4-5.1) mmol/L Chloride 102 (98-107) mmol/L Carbon Dioxide 24 (22-32) mmol/L BUN 10 (7-17) mg/dL Creatinine 0.63 (0.52-1.04) mg/dL Estimated GFR > 60 (>60) mL/min BUN/Creatinine Ratio 15.9 (6-22) Glucose 131 H (70-99) mg/dL Calcium 9.1 (8.4-10.2) mg/dL Magnesium 1.6 (1.6-2.3) mg/dL Total Bilirubin 0.2 (0.2-1.3) mg/dL AST 27 (14-36) IU/L ALT 13 (<35) IU/L Alkaline Phosphatase 64 (38-126) U/L Troponin I < 0.012 (0.01-0.034) ng/mL NT-Pro-B Natriuret Pep 190 H (<125) pg/mL Total Protein 7.4 (6.3-8.2) g/dL Albumin 4.2 (3.5-5.0) g/dL Globulin 3.2 (1.7-4.1) g/dL Albumin/Globulin Ratio 1.3 (1.0-2.8) Lipase 83 (23-300) U/L Salicylates < 1.0 (<20) mg/dL U Opiates 300ng/mL cut Negative (Negative) Ur Oxycodone Screen Negative (Negative) Urine Methadone Screen Negative (Negative) Acetaminophen < 10 (10-30) ug/mL Ur Barbiturates Screen Negative (Negative) U Tricyclic Antidepress Negative (Negative) Ur Phencyclidine Scrn Negative (Negative) Ur Amphetamines Screen Negative (Negative) U Methamphetamines Scrn Negative (Negative) Ur MDMA Scrn (Ecstasy) Negative (Negative) U Benzodiazepines Scrn Negative (Negative) Urine Cocaine Screen Negative (Negative) U Marijuana (THC) Screen Negative (Negative) Urine pH Normal (Normal) Urine Specific [place] Normal (Normal) Ethyl Alcohol < 10 (<10) mg/dL Ur Creatinine Normal (Normal) Point of care testing: Point of Care Testing Test Results Negative Urine Dip Bedside Urine Glucose Negative Bedside Urine Bilirubin - Negative Bedside Urine Ketone - Negative Urine Specific [place] 1.010 Bedside Urine Occult Blood - Negative Bedside Urine pH 6.5 Bedside Urine Protein - Negative Bedside Urine Urobilinogen - Negative Bedside Urine Nitrite - Negative Bedside Urine Leukocytes + [address] scan - chest: Radiologist's Impression: [address] [address] [address] Scan Report Signed Patient: Mariam Das MR#: [id number] : 1990 Acct:[id number] Age/Sex: 34 / F Date of Service: 05/03/25 Loc: ED Accession Number: [id number] Procedure: CT angio chest PE protocol Ordering Provider: Birgit Daniel D.O. PROCEDURE: CT ANGIO CHEST PE PROTOCOL INDICATIONS: PE on ab ct TECHNIQUE: After the administration of intravenous contrast, 2 mm thick sections acquired from the pulmonary apices to the posterior costophrenic angles. 3-dimensional maximum intensity projection (MIP) coronal and sagittal reformats were then acquired through the thorax. For radiation dose reduction, the following was used: automated exposure control, adjustment of mA and/or kV according to patient size. COMPARISON: None. FINDINGS: Image quality: Diagnostic. Pulmonary arteries: Segmental and subsegmental pulmonary emboli are noted in the left upper lobe. Moderate volume lobar, segmental and subsegmental pulmonary emboli are noted in the right upper, middle and lower lobes. No dilation of the right ventricle in aorta. Lower Neck: No enlarged lymph nodes. Thyroid: No thyroid nodules which require sonographic follow up, per consensus guidelines. Axillae: No enlarged lymph nodes. Chest Wall: Unremarkable. Bones: Unremarkable. Dextroscoliosis of the lower thoracic spine noted. Lungs and Pleura: No pneumothorax or pleural effusions. No concerning lung nodules. Paraseptal emphysema noted in the posterior right upper lobe. Patchy areas of peribronchovascular and subpleural ground-glass opacities are noted in both lower lobes. Heart: Heart size is normal. No pericardial effusion. Thoracic Vessels: No aortic aneurysm. Mediastinum and [place]: No enlarged lymph nodes. Esophagus: No wall thickening. Small hiatal hernia. Upper Abdomen: Visualized upper abdomen solid organs and bowel loops appear normal. IMPRESSION: Positive for lobar, segmental and subsegmental right upper, middle and lower lobe pulmonary emboli. Subsegmental left upper lobe pulmonary emboli. Negative for heart strain. Patchy areas of ground-glass opacities in the bilateral lower lobe to be due to multifocal pulmonary emboli or infection/inflammation. Correlate with symptoms. MDM Narrative Medical decision making narrative: STACEY CC: [ ] Complicating co-morbidities: [ ] Data collected from: [ ] Medical records reviewed: [ ] Differential considered: [ ] Exam documented above, pertinent findings include: [ ] Lab Test results independently reviewed as above. Pertinent findings: [ ] Independently reviewed EKG as above Imaging studies independently reviewed: Consultations: [ ] Treatments: [ ] Re-evaluations: [ ] Discussion:[ ] All lab work, vital signs, nurse triage note, medication list, previous ER visits, and all imaging studies reviewed. CTA showed positive for lobar segmental and subsegmental right upper middle and lower lobe pulmonary emboli. Subsegmental left upper lobe. Pulmonary emboli negative heart strain. Patchy areas of ground-glass opacities in the bilateral lobe due to multifocal pulmonary emboli or infection. CT head showed no acute process. CT abdomen and pelvis showed no acute process. Ultrasound lower leg did not show any DVT. Patient given Ativan Eliquis here and will be discharged on Eliquis. Discharge Plan Departure Patient Disposition: Home Clinical Impression: Pulmonary embolism Qualifiers: Pulmonary embolism type: other Chronicity: acute Acute cor pulmonale presence: without acute cor pulmonale Qualified Code(s): I26.99 - Other pulmonary embolism without acute cor pulmonale Instructions: DI for Pulmonary Embolism Activity Restrictions/Additional Instructions: Return with new or worsening symptoms. Take your medicines directed. Follow up with PCP 1-2 weeks for recheck. Prescriptions: New Eliquis DVT-PE Treat 30D Start 5 mg (74 tabs) tablets,dose pack 5 mg PO BID Qty: 74 0RF No Action prenat.vits,bianca,jzs-chgh-ggxth tablet 1 tab PO DAILY Dermoplast (with menthol) 20-0.5 % Aerosol 1 spray topical Q1HR PRN (Reason: perineal pain) Qty: 1 0RF ibuprofen 600 mg Tablet 600 mg PO Q6HR PRN (Reason: Pain, Mild (1-3)) Qty: 14 0RF docusate sodium 250 mg Capsule 250 mg PO DAILY Qty: 10 0RF Vhd-M-Jmgzvm Cream 1 applic topical PRN PRN (Reason: Tenderness) Qty: 1 0RF ferrous gluconate 324 mg (38 mg iron) Tablet 324 mg PO DAILY Qty: 60 0RF Stand Alone Forms: Patient Portal/API
[2025-05-03 12:26] LABS: UR Morphine/Opiate cutoff 300 Negative (Negative); Ur Specific Gravity Normal (Normal); Urine MDMA Negative (Negative); Urine Methamphetamines Negative (Negative); Urine Tetrahydrocannabinol Negative (Negative); Urine Tricyclic Antidepressant Negative (Negative)
[2025-05-03 12:42] LABS: Add Manual Diff / Slide Review NO; Hematocrit 36.3 % (36-46); Hemoglobin 12.3 g/dL (12.0-16.0); Lymphocytes Absolute Auto 1600 /uL (1100-4500); Mean Corpuscular HGB Conc 33.8 % (30-36); Mean Corpuscular Hemoglobin 29.6 PG (26-34); Mean Corpuscular Volume 87.8 fL (80-100); Platelet Count 189 X10^3/uL (150-400)
[2025-05-03 13:07] LABS: Acetaminophen < 10 ug/mL (10-30); Ethanol (ETOH) < 10 mg/dL (<10); Salicylate < 1.0 mg/dL (<20)
[2025-05-03 13:31] LABS: Alanine Aminotransferase 13 IU/L (<35); Albumin 4.2 g/dL (3.5-5.0); Albumin Globulin Ratio 1.3 (1.0-2.8); Alkaline Phosphatase 64 U/L (38-126); Blood Urea Nitrogen 10 mg/dL (7-17); Calcium 9.1 mg/dL (8.4-10.2); Carbon Dioxide 24 mmol/L (22-32); Chloride 102 mmol/L (98-107); Estimated Glomerular Filt Rate > 60 mL/min (>60); Globulin 3.2 g/dL (1.7-4.1); Glucose 131 mg/dL (70-99); HEMOLYSIS < 15 (0-50); Lipase 83 U/L (23-300); Magnesium 1.6 mg/dL (1.6-2.3); Potassium 4.6 mmol/L (3.4-5.1); Sodium 135 mmol/L (137-145); Total Protein 7.4 g/dL (6.3-8.2)
[2025-05-03 13:42] LABS: NT-proBNP (BNP-Adult 18+) 190 pg/mL (<125); Troponin I < 0.012 ng/mL (0.01-0.034)
[2025-05-03] MEDS: SODIUM CHLORIDE 0.9% 1,000 ML 1000 ML IV (14:29)
[2025-05-03] MEDS: ACETAMINOPHEN IV 1,000 MG/100 ML VIAL 400 MG IV (14:29)
--- NOTE | 2025-05-03 14:33 | DI.CT.S_ITS ---
PROCEDURE: CT ABDOMEN PELVIS W CON INDICATIONS: ab pain on going nausea TECHNIQUE: After the administration of intravenous contrast, axial sections acquired from the lung bases to the pubic symphysis. Coronal and sagittal reformats were performed. For radiation dose reduction, the following was used: automated exposure control, adjustment of mA and/or kV according to patient size. COMPARISON: [facility], CT, CT ABDOMEN PELVIS WITH CONTRAST, 10/30/2022, 19:45. FINDINGS: Image quality: Diagnostic. Lower Chest: No significant findings. Small incidental hiatal hernia. Dependent atelectasis is noted. Right lower lobar and segmental pulmonary artery filling defects are noted. Possible segmental pulmonary artery filling defects in the left lower lobe. ABDOMEN: Liver: No solid mass. Gallbladder: No radiopaque gallstones or wall thickening. Biliary ducts: No biliary dilation. Pancreas: No ductal dilation. Spleen: Size is within normal limits. Adrenal Glands: No adrenal nodules. Kidneys and Ureters: No hydronephrosis. No solid mass. No complex renal cystic lesion which requires follow up. Stomach and Bowel: Normal colonic caliber, without significant wall thickening. Peritoneum: No abnormal intraperitoneal fluid. No free air. Ventral Wall: No significant ventral hernia. Abdominal Nodes: No retroperitoneal or mesenteric adenopathy by size criteria. Vessels: Aorta and inferior vena cava are normal in size. PELVIS: Pelvic Organs: Unremarkable. Bladder: No bladder wall thickening, accounting for underdistention. Pelvic Nodes: No enlarged lymph nodes. Miscellaneous: No inguinal hernias are seen. Bones: No aggressive osseous abnormality. Dextroscoliosis of the lower thoracic spine noted. IMPRESSION: No acute abnormality in abdomen or pelvis. Right lower lobar and segmental pulmonary artery filling defects. Possible subsegmental left lower lobe pulmonary artery filling defects. Imaging findings consistent with multifocal pulmonary emboli. Recommend CT pulmonary angiogram for more definitive evaluation of thrombus burden. Imaging findings and recommendations discussed with the ordering clinician at 3:11 p.m. On 05/03/2025. Dictated by: Yecenia Wagner M.D. on 05/03/2025 at 14:59 Approved by: Yecenia Wagner M.D. on 05/03/2025 at 15:11
--- NOTE | 2025-05-03 14:33 | DI.CT.S_ITS ---
PROCEDURE: CT HEAD/BRAIN WO CON INDICATIONS: left side numbness TECHNIQUE: Noncontrast 4.5 mm thick angled axial sections acquired from the foramen magnum to the vertex, with coronal and sagittal reformats. For radiation dose reduction, the following was used: automated exposure control, adjustment of mA and/or kV according to patient size. COMPARISON: [facility], CT, CT HEAD WITHOUT CONTRAST, 10/30/2022, 19:45. FINDINGS: Image quality: Diagnostic. CSF spaces: Basal cisterns are patent. No extra-axial fluid collections. Ventricles are normal in size and shape. Brain: No midline shift. No intracranial mass effect or hemorrhage. Granados- white matter interface is normal. Skull and face: Calvarium and visualized facial bones are intact, without suspicious lesions. Sinuses: Visualized sinuses and mastoids are clear. IMPRESSION: No imaging explanation is found for this patient's presenting symptoms. To the limits of this noncontrast study, no findings of intracranial masses or mass effect can be seen. No acute intracranial hemorrhage is seen. If there is strong clinical suspicion for an acute stroke, please consider a brain MRI for further evaluation, as it is more sensitive (assuming that there is no contraindication to MRI). Dictated by: Matt Mcpherson M.D. on 05/03/2025 at 13:59 Approved by: Matt Mcpherson M.D. on 05/03/2025 at 13:59
--- NOTE | 2025-05-03 15:10 | DI.CT.S_ITS ---
PROCEDURE: CT ANGIO CHEST PE PROTOCOL INDICATIONS: PE on ab ct TECHNIQUE: After the administration of intravenous contrast, 2 mm thick sections acquired from the pulmonary apices to the posterior costophrenic angles. 3-dimensional maximum intensity projection (MIP) coronal and sagittal reformats were then acquired through the thorax. For radiation dose reduction, the following was used: automated exposure control, adjustment of mA and/or kV according to patient size. COMPARISON: None. FINDINGS: Image quality: Diagnostic. Pulmonary arteries: Segmental and subsegmental pulmonary emboli are noted in the left upper lobe. Moderate volume lobar, segmental and subsegmental pulmonary emboli are noted in the right upper, middle and lower lobes. No dilation of the right ventricle in aorta. Lower Neck: No enlarged lymph nodes. Thyroid: No thyroid nodules which require sonographic follow up, per consensus guidelines. Axillae: No enlarged lymph nodes. Chest Wall: Unremarkable. Bones: Unremarkable. Dextroscoliosis of the lower thoracic spine noted. Lungs and Pleura: No pneumothorax or pleural effusions. No concerning lung nodules. Paraseptal emphysema noted in the posterior right upper lobe. Patchy areas of peribronchovascular and subpleural ground-glass opacities are noted in both lower lobes. Heart: Heart size is normal. No pericardial effusion. Thoracic Vessels: No aortic aneurysm. Mediastinum and Natalia: No enlarged lymph nodes. Esophagus: No wall thickening. Small hiatal hernia. Upper Abdomen: Visualized upper abdomen solid organs and bowel loops appear normal. IMPRESSION: Positive for lobar, segmental and subsegmental right upper, middle and lower lobe pulmonary emboli. Subsegmental left upper lobe pulmonary emboli. Negative for heart strain. Patchy areas of ground-glass opacities in the bilateral lower lobe to be due to multifocal pulmonary emboli or infection/inflammation. Correlate with symptoms. Dictated by: Yecenia Wagner M.D. on 05/03/2025 at 16:06 Approved by: Yecenia Wagner M.D. on 05/03/2025 at 16:15
[2025-05-03 15:21] LABS: INR 1.0 (0.9-1.3); Prothrombin Time 11.8 SECONDS (9.4-12.5)
[2025-05-03 15:24] LABS: PTT Partial Thromboplastin Tim 32 SECONDS (25.1-36.5)
--- NOTE | 2025-05-03 16:22 | DI.US.S_ITS ---
PROCEDURE: US PERIPH VENOUS LOW EXTREM BI INDICATIONS: POSITIVE PULMONARY EMBOLISM TECHNIQUE: Real-time imaging, as well as color and pulse Doppler interrogation, were performed of the deep veins of both legs from the inguinal ligament to the popliteal fossa, with documentation of the visualized calf veins. COMPARISON: None. FINDINGS: Right: The common femoral, femoral, popliteal, and the visualized calf veins are normally compressible, and free of intraluminal thrombus. Color and pulse Doppler demonstrate normal phasic intravascular flow. There is normal augmentation response to distal compression maneuver. Left: The common femoral, femoral, popliteal, and the visualized calf veins are normally compressible, and free of intraluminal thrombus. Color and pulse Doppler demonstrate normal phasic intravascular flow. There is normal augmentation response to distal compression maneuver. IMPRESSION: No findings of deep venous thrombosis in either lower extremity. Approved by: Herminio May M.D. on 05/03/2025 at 17:38
[2025-05-03] MEDS: SUBOXONE 1 EACH SL (16:32)
[2025-05-03] MEDS: APIXABAN 5 MG TABLET PO (16:32)
== END 2025-05-03 18:09 | disposition home or self-care (01) ==
PROVIDERS: Emergency Medicine; Emergency Provider Family Medicine
DX: I26.99 Other pulmonary embolism without acute cor pulmonale (principal); R11.2 Nausea with vomiting, unspecified; R07.9 Chest pain, unspecified; R10.9 Unspecified abdominal pain; F17.290 Nicotine dependence, other tobacco product, uncomplicated; R29.701 NIHSS score 1
CPT/HCPCS: 36415; 70450; 71045; 71275; 74177; 80053; 80305; 80320; 80329; 81003; 81025; 83690; 83735; 83880; 84484; 85025; 85610; 85730; 93005; 93010; 93970; 96361; 96365; 96375; 96376; 99284; G0480; J0131; J2060; J7030; Q9967

== ENCOUNTER → 2025-05-05 13:40 | Outpatient (CLI) | payer OTHER, SELFPAY ==
[2025-05-05 14:40] LABS: Add Manual Diff / Slide Review NO; Hematocrit 38.4 % (36-46); Hemoglobin 13.2 g/dL (12.0-16.0); Lymphocytes Absolute Auto 2700 /uL (1100-4500); Mean Corpuscular HGB Conc 34.3 % (30-36); Mean Corpuscular Hemoglobin 30.0 PG (26-34); Mean Corpuscular Volume 87.3 fL (80-100); Platelet Count 224 X10^3/uL (150-400)
== END ==
PROVIDERS: Referring Provider Registered Nurse; Visit Provider Registered Nurse
DX: Z79.899 Other long term (current) drug therapy (principal)
CPT/HCPCS: 36415; 85025

== ENCOUNTER 2025-05-05 13:52 | Emergency (ER) | payer OTHER, SELFPAY ==
[2025-05-05] VITALS (7 sets, daily range): BP systolic 102–129; BP diastolic 59–79; PULSE 90–132; RESP 13–16; TEMP 36.1; O2SAT 91–97; BMI 35.4
--- NOTE | 2025-05-05 14:03 | DI.CT.S_ITS ---
PROCEDURE: CT HEAD/BRAIN WO CON INDICATIONS: hit head on freezer,takes eliquis TECHNIQUE: Noncontrast 4.5 mm thick angled axial sections acquired from the foramen magnum to the vertex, with coronal and sagittal reformats. For radiation dose reduction, the following was used: automated exposure control, adjustment of mA and/or kV according to patient size. COMPARISON: , CT, CT HEAD/BRAIN WO CON, 05/03/2025, 14:42. FINDINGS: Image quality: Diagnostic. CSF spaces: Basal cisterns are patent. No extra-axial fluid collections. Ventricles are normal in size and shape. Brain: No midline shift. No intracranial mass effect or hemorrhage. Granados- white matter interface is normal. Skull and face: Calvarium and visualized facial bones are intact, without suspicious lesions. Sinuses: Visualized sinuses and mastoids are clear. IMPRESSION: No acute intracranial pathology. Dictated by: Yecenia Wagner M.D. on 05/05/2025 at 14:23 Approved by: Yecenia Wagner M.D. on 05/05/2025 at 14:26
--- NOTE | 2025-05-05 15:23 | ED_ITS ---
HPI - Head Injury General Chief complaint: Trauma Stated complaint: Hit head , on blood thinners, has been throwing up Time Seen by Provider: 05/05/25 14:03 Mode of arrival: Ambulatory History of Present Illness HPI Narrative: 34-year-old female recently diagnosed with PE on Eliquis presents with head injury hitting head against the top of her freezer with multiple episodes of nonbilious nonbloody nausea and vomiting today. She denies headache, dizziness, loss of consciousness, chest pain, shortness breath, neck pain, numbness, tingling the arms or legs or gait instability. Other than what is stated 14 point review of system is negative. Related Data Home Medications ?Medication ?Instructions ?Recorded ?Confirmed prenat.vits,bianca,ycs-gswv-kulss 1 tab PO DAILY 07/07/18 03/02/19 Previous Rx's ?Medication ?Instructions ?Recorded benzocaine 20 %-menthol 0.5 % 1 spray topical Q1HR PRN perineal 01/13/19 topical aerosol (Dermoplast (with pain #1 g menthol)) docusate sodium 250 mg capsule 250 mg PO DAILY #10 cap s 01/13/19 ferrous gluconate 324 mg (38 mg 324 mg PO DAILY #60 ta bs 01/13/19 iron) tablet ibuprofen 600 mg tablet 600 mg PO Q6HR PRN Pain, Mil d 01/13/19 (1-3) #14 tabs lanolin (Fwk-Z-Famlci topical 1 applic topical PRN PRN 01/13/19 cream) Tenderness #1 g apixaban 5 mg (74 tabs) tablets in 5 mg PO BID #74 ea 05/03/25 a dose pack (Eliquis DVT-PE Treat 30D Start) Allergies Allergy/AdvReac Type Severity Reaction Status Date / Time ibuprofen Allergy Hives Verified 05/05/25 13:58 Review of Systems Review of Systems ROS Unobtainable: All systems reviewed & are unremarkable except as noted in HPI and below Patient History Social History Smoking Status: Unknown if ever smoked Smoking Status: Unknown if ever smoked tobacco type: vaping Exam Narrative Exam Narrative: GENERAL: [34] year old patient appears stated age. Well-developed patient, in mild distress. HEAD: Atraumatic. Normocephalic. EYES: Pupils equal round and reactive. Extraocular motions intact. No scleral icterus. No injection or drainage. ENT: Nose without bleeding, purulent drainage. Throat without erythema, tonsillar hypertrophy or exudate. Airway patent. NECK: Trachea midline. Non tender CARDIOVASCULAR: Regular rate and rhythm without murmurs, gallops, or rubs. RESPIRATORY: Clear to auscultation. Breath sounds equal bilaterally. No wheezes, rales, or rhonchi. GASTROINTESTINAL: Abdomen soft, non-tender, nondistended. EXTREMITIES: No edema or joint tenderness. BACK: Nontender without deformity or crepitance. No flank tenderness. NEURO: AOx3. SKIN: No rash or erythema of visible areas Initial Vital Signs Initial Vital Signs: Vital Signs Temperature 97.0 F L 05/05/25 13:58 Pulse Rate 132 H 05/05/25 13:58 Respiratory Rate 15 05/05/25 13:58 Blood Pressure 129/79 05/05/25 13:58 Pulse Oximetry 96 05/05/25 13:58 Oxygen Delivery Method Room Air 05/05/25 13:58 Course Orders Ordered: ED Orders 05/05/25 14:03 CT head/brain wo con Stat 05/05/25 15:15 CBC Auto Diff [Complete Blood Count AUTO DIFF] Stat CMP [Comprehensive Metabolic Panel] Stat Discontinued Medications Lactated Ringer's (Lactated Ringers) 1,000 mls @ 1,000 mls/hr IV BOLUS ONE Stop: 05/05/25 16:23 Last Admin: 05/05/25 16:34 Dose: 1,000 mls/hr Documented By: JAMIE Ondansetron HCl (Ondansetron 4 Mg/2 Ml Inj) 4 mg IV NOW ONE Stop: 05/05/25 15:25 Last Admin: 05/05/25 16:34 Dose: 4 mg Documented By: JAMIE Vital Signs Vital signs: Vital Signs - 8 hr 05/05/25 13:58 05/05/25 15:08 05/05/25 15:08 Temperature 97.0 F L Pulse Rate 132 H 118 H Respiratory Rate 15 Blood Pressure 129/79 125/68 Pulse Oximetry 96 96 Oxygen Delivery Method Room Air 05/05/25 15:30 05/05/25 15:30 05/05/25 16:00 Temperature Pulse Rate 109 H Respiratory Rate 14 Blood Pressure 111/63 102/67 Pulse Oximetry 96 Oxygen Delivery Method Room Air 05/05/25 16:30 05/05/25 16:30 Temperature Pulse Rate 99 H Respiratory Rate 15 Blood Pressure 107/59 L Pulse Oximetry 97 Oxygen Delivery Method MDM - Head Injury Lab Data 05/05/25 15:15 05/05/25 15:15 Labs: Lab Results 05/05/25 Range/Units 15:15 WBC 7.2 (4.5-11.0) X10^3/uL RBC 4.24 (4.0-5.2) X10^6/uL Hgb 12.7 (12.0-16.0) g/dL Hct 37.1 (36-46) % MCV 87.6 (80-100) fL MCH 30.0 (26-34) PG MCHC 34.2 (30-36) % RDW 12.8 (11.6-14.8) % Plt Count 225 (150-400) X10^3/uL Neut % (Auto) 58.6 (50-75) % Lymph % (Auto) 29.8 (25-40) % Foster % (Auto) 6.7 (3-14) % Eos % (Auto) 4.5 H (2-4) % Baso % (Auto) 0.4 (0-2) % Neut # (Auto) 4200 (5617-2777) /uL Lymph # (Auto) 2100 (1989-1359) /uL Foster # (Auto) 500 (0-900) /uL Eos # (Auto) 300 (0-450) /uL Baso # (Auto) 0 (0-100) /uL Sodium 137 (137-145) mmol/L Potassium 4.3 (3.4-5.1) mmol/L Chloride 101 (98-107) mmol/L Carbon Dioxide 27 (22-32) mmol/L BUN 6 L (7-17) mg/dL Creatinine 0.64 (0.52-1.04) mg/dL Estimated GFR > 60 (>60) mL/min BUN/Creatinine Ratio 9.4 (6-22) Glucose 100 H (70-99) mg/dL Calcium 9.3 (8.4-10.2) mg/dL Total Bilirubin 0.2 (0.2-1.3) mg/dL AST 27 (14-36) IU/L ALT 11 (<35) IU/L Alkaline Phosphatase 71 (38-126) U/L Total Protein 7.4 (6.3-8.2) g/dL Albumin 4.1 (3.5-5.0) g/dL Globulin 3.3 (1.7-4.1) g/dL Albumin/Globulin Ratio 1.2 (1.0-2.8) Imaging Data CT scan - head: Radiologist's Impression: [address] [address] [address] Scan Report Signed Patient: Mariam Das MR#: [id number] : 1990 Acct:[id number] Age/Sex: 34 / F Date of Service: 05/05/25 Loc: ED Accession Number: [id number] Procedure: CT head/brain wo con Ordering Provider: Jerod Snow D.O. PROCEDURE: CT HEAD/BRAIN WO CON INDICATIONS: hit head on freezer,takes eliquis TECHNIQUE: Noncontrast 4.5 mm thick angled axial sections acquired from the foramen magnum to the vertex, with coronal and sagittal reformats. For radiation dose reduction, the following was used: automated exposure control, adjustment of mA and/or kV according to patient size. COMPARISON: [facility], CT, CT HEAD/BRAIN WO CON, 05/03/2025, 14:42. FINDINGS: Image quality: Diagnostic. CSF spaces: Basal cisterns are patent. No extra-axial fluid collections. Ventricles are normal in size and shape. Brain: No midline shift. No intracranial mass effect or hemorrhage. Granados- white matter interface is normal. Skull and face: Calvarium and visualized facial bones are intact, without suspicious lesions. Sinuses: Visualized sinuses and mastoids are clear. IMPRESSION: No acute intracranial pathology. MDM Narrative Medical decision making narrative: All lab work, vital signs, nurse triage note, medication list, previous ER visits, and all imaging studies reviewed. CT head showed no acute process. WBC 7.2 hemoglobin 12.7 platelets 225 sodium 137 potassium 4.3 chloride 101 CO2 27 BUN 6 creatinine 0.64 glucose 100 calcium 9.3 LFTs normal. Differential diagnosis closed head injury, hemorrhage, contusion. GCS 15 nonfocal neuro exam Discharge Plan Departure Patient Disposition: Home Clinical Impression: Contusion of head Qualifiers: Encounter type: initial encounter Contusion of head detail: other part of head Qualified Code(s): S00.83XA - Contusion of other part of head, initial encounter Instructions: DI for Contusion Activity Restrictions/Additional Instructions: Return with new or worsening symptoms. Please get established with PCP and follow up next week if appointment available. Prescriptions: No Action prenat.vits,bianca,uwh-sccd-vhdjh tablet 1 tab PO DAILY Eliquis DVT-PE Treat 30D Start 5 mg (74 tabs) tablets,dose pack 5 mg PO BID Qty: 74 0RF Dermoplast (with menthol) 20-0.5 % Aerosol 1 spray topical Q1HR PRN (Reason: perineal pain) Qty: 1 0RF ibuprofen 600 mg Tablet 600 mg PO Q6HR PRN (Reason: Pain, Mild (1-3)) Qty: 14 0RF docusate sodium 250 mg Capsule 250 mg PO DAILY Qty: 10 0RF Tjm-L-Fgvxve Cream 1 applic topical PRN PRN (Reason: Tenderness) Qty: 1 0RF ferrous gluconate 324 mg (38 mg iron) Tablet 324 mg PO DAILY Qty: 60 0RF Stand Alone Forms: Patient Portal/API
[2025-05-05 15:28] LABS: Add Manual Diff / Slide Review NO; Hematocrit 37.1 % (36-46); Hemoglobin 12.7 g/dL (12.0-16.0); Lymphocytes Absolute Auto 2100 /uL (1100-4500); Mean Corpuscular HGB Conc 34.2 % (30-36); Mean Corpuscular Hemoglobin 30.0 PG (26-34); Mean Corpuscular Volume 87.6 fL (80-100); Platelet Count 225 X10^3/uL (150-400)
[2025-05-05 15:49] LABS: Alanine Aminotransferase 11 IU/L (<35); Albumin 4.1 g/dL (3.5-5.0); Albumin Globulin Ratio 1.2 (1.0-2.8); Alkaline Phosphatase 71 U/L (38-126); Blood Urea Nitrogen 6 mg/dL (7-17); Calcium 9.3 mg/dL (8.4-10.2); Carbon Dioxide 27 mmol/L (22-32); Chloride 101 mmol/L (98-107); Estimated Glomerular Filt Rate > 60 mL/min (>60); Globulin 3.3 g/dL (1.7-4.1); Glucose 100 mg/dL (70-99); HEMOLYSIS < 15 (0-50); Potassium 4.3 mmol/L (3.4-5.1); Sodium 137 mmol/L (137-145); Total Protein 7.4 g/dL (6.3-8.2)
[2025-05-05] MEDS: ONDANSETRON 4 MG/2 ML INJ IV (16:34)
[2025-05-05] MEDS: LACTATED RINGERS 1,000 ML 1000 ML IV (16:34)
== END 2025-05-05 18:06 | disposition home or self-care (01) ==
PROVIDERS: Emergency Provider Family Medicine
DX: S00.83XA Contusion of other part of head, initial encounter (principal); Z79.01 Long term (current) use of anticoagulants; W22.8XXA Striking against or struck by other objects, initial encounter; R11.2 Nausea with vomiting, unspecified; F17.290 Nicotine dependence, other tobacco product, uncomplicated; Z79.899 Other long term (current) drug therapy
CPT/HCPCS: 36415; 70450; 80053; 85025; 96361; 96374; 99284; J2405; J7120

== ENCOUNTER → 2025-05-13 11:12 | Outpatient (CLI) | payer OTHER, SELFPAY ==
[2025-05-13 12:15] LABS: Add Manual Diff / Slide Review NO; Hematocrit 37.5 % (36-46); Hemoglobin 12.8 g/dL (12.0-16.0); Lymphocytes Absolute Auto 2400 /uL (1100-4500); Mean Corpuscular HGB Conc 34.1 % (30-36); Mean Corpuscular Hemoglobin 29.9 PG (26-34); Mean Corpuscular Volume 87.7 fL (80-100); Platelet Count 223 X10^3/uL (150-400)
== END ==
LOC: LAB 11:15
PROVIDERS: Referring Provider Registered Nurse; Visit Provider Registered Nurse
DX: Z79.899 Other long term (current) drug therapy (principal)
CPT/HCPCS: 36415; 80159; 85025

== ENCOUNTER → 2025-05-20 15:18 | Outpatient (CLI) | payer OTHER, SELFPAY ==
[2025-05-20 17:13] LABS: Add Manual Diff / Slide Review NO; Hematocrit 38.3 % (36-46); Hemoglobin 12.9 g/dL (12.0-16.0); Lymphocytes Absolute Auto 1900 /uL (1100-4500); Mean Corpuscular HGB Conc 33.7 % (30-36); Mean Corpuscular Hemoglobin 29.5 PG (26-34); Mean Corpuscular Volume 87.7 fL (80-100); Platelet Count 208 X10^3/uL (150-400)
== END ==
PROVIDERS: Referring Provider Registered Nurse; Visit Provider Registered Nurse
DX: Z79.899 Other long term (current) drug therapy (principal)
CPT/HCPCS: 36415; 80159; 85025

== ENCOUNTER → 2025-05-26 12:23 | Outpatient (CLI) | payer OTHER, SELFPAY | PROVIDERS: PCP Registered Nurse; Referring Provider Registered Nurse; Visit Provider Registered Nurse | DX: Z79.899 Other long term (current) drug therapy (principal) | CPT/HCPCS: 36415; 80159 ==

== ENCOUNTER → 2025-06-02 11:55 | Outpatient (CLI) | payer OTHER, SELFPAY ==
[2025-06-02 12:45] LABS: Add Manual Diff / Slide Review NO; Hematocrit 38.2 % (36-46); Hemoglobin 13.0 g/dL (12.0-16.0); Lymphocytes Absolute Auto 2300 /uL (1100-4500); Mean Corpuscular HGB Conc 33.9 % (30-36); Mean Corpuscular Hemoglobin 29.6 PG (26-34); Mean Corpuscular Volume 87.4 fL (80-100); Platelet Count 189 X10^3/uL (150-400)
== END ==
PROVIDERS: PCP Registered Nurse; Referring Provider Registered Nurse; Visit Provider Registered Nurse
DX: Z79.899 Other long term (current) drug therapy (principal)
CPT/HCPCS: 80159; 85025

== ENCOUNTER → 2025-06-17 09:59 | Outpatient (CLI) | payer OTHER, SELFPAY ==
[2025-06-17 11:26] LABS: Add Manual Diff / Slide Review NO; Hematocrit 42.0 % (36-46); Hemoglobin 14.2 g/dL (12.0-16.0); Lymphocytes Absolute Auto 3000 /uL (1100-4500); Mean Corpuscular HGB Conc 33.7 % (30-36); Mean Corpuscular Hemoglobin 29.1 PG (26-34); Mean Corpuscular Volume 86.2 fL (80-100); Platelet Count 224 X10^3/uL (150-400)
== END ==
LOC: LAB 10:01
PROVIDERS: PCP Registered Nurse; Referring Provider Registered Nurse; Visit Provider Registered Nurse
DX: Z79.899 Other long term (current) drug therapy (principal)
CPT/HCPCS: 36415; 80159; 85025

== ENCOUNTER → 2025-07-01 09:57 | Outpatient (CLI) | payer OTHER, SELFPAY ==
--- NOTE | 2025-07-01 | DI.RAD.S_ITS ---
PROCEDURE: XR WRIST LT 2V INDICATIONS: left wrist pain TECHNIQUE: Two views of the wrist were acquired. COMPARISON: None. FINDINGS: Bones: No fractures or dislocations. No suspicious bony lesions. Soft tissues: No suspicious soft tissue calcifications. IMPRESSION: No acute bony abnormality. Dictated by: Alla Sanford M.D. on 07/01/2025 at 13:58 Approved by: Alla Sanford M.D. on 07/01/2025 at 13:59
--- NOTE | 2025-07-01 | DI.RAD.S_ITS ---
PROCEDURE: XR FOOT RT MIN 3V INDICATIONS: pain on right great toe TECHNIQUE: Three views of the foot were acquired. COMPARISON: None. FINDINGS: Bones: There is a longitudinally oriented, slightly impacted, intra-articular fracture involving the 2nd proximal phalanx head. Joint remains in normal position. Questionable nondisplaced longitudinal fracture involving the medial base of the 1st distal phalanx with extension also to the articular surface. No other definite fractures. Otherwise normal bone alignment. Soft tissues: Mild soft tissue swelling around the 2nd PIP joint. No unusual calcifications. IMPRESSION: Nondisplaced 2nd proximal phalanx and 1st distal phalanx fractures as described. Dictated by: Alla Sanford M.D. on 07/01/2025 at 13:53 Approved by: Alla Sanford M.D. on 07/01/2025 at 13:57
--- NOTE | 2025-07-01 | DI.RAD.S_ITS ---
PROCEDURE: XR HAND LT MIN 3V INDICATIONS: left thumb and wrist pain TECHNIQUE: 3 views of the hand(s) acquired. COMPARISON: None. FINDINGS: Bones: No fractures or dislocations. Carpal bones are normally aligned. No suspicious bony lesions. Soft tissues: No suspicious soft tissue calcifications. IMPRESSION: No acute bony abnormality. Dictated by: Alla Sanford M.D. on 07/01/2025 at 13:57 Approved by: Alla Sanford M.D. on 07/01/2025 at 13:58
[2025-07-01 10:57] LABS: Add Manual Diff / Slide Review NO; Hematocrit 39.6 % (36-46); Hemoglobin 13.4 g/dL (12.0-16.0); Lymphocytes Absolute Auto 3700 /uL (1100-4500); Mean Corpuscular HGB Conc 34.0 % (30-36); Mean Corpuscular Hemoglobin 29.4 PG (26-34); Mean Corpuscular Volume 86.4 fL (80-100); Platelet Count 193 X10^3/uL (150-400)
== END ==
PROVIDERS: PCP Registered Nurse; Referring Provider Registered Nurse; Visit Provider Registered Nurse
DX: M25.532 Pain in left wrist (principal); M79.645 Pain in left finger(s); M79.674 Pain in right toe(s); Z79.899 Other long term (current) drug therapy
CPT/HCPCS: 36415; 73100; 73130; 73630; 80159; 85025

== ENCOUNTER 2025-07-05 16:34 | Emergency (ER) | payer OTHER, SELFPAY ==
[2025-07-05] VITALS (9 sets, daily range): BP systolic 107–129; BP diastolic 57–61; PULSE 60–97; RESP 16–17; TEMP 36.4; O2SAT 94–99; BMI 35.4
--- NOTE | 2025-07-05 17:20 | ED.HEATRA ---
HPI - Head Injury General Chief complaint: Trauma Stated complaint: seizure last night/hit head N/V Time Seen by Provider: 07/05/25 17:19 Source: patient Mode of arrival: Ambulatory History of Present Illness HPI Narrative: 34-year-old female patient with a history of bipolar disorder, schizophrenia, anxiety, PTSD, ADD and possible seizure versus nonepileptic seizure disorder. She also is on anticoagulants for pulmonary embolism episode earlier this year. She complains of having had a ?seizure? last night lasting 15 minutes which was a ?blackout? spell resulting in weakness and a fall with injury to her head. She thinks she lost consciousness and has a global headache and pain at the occiput. Also mild neck pain. She says she had 2 more small seizures this morning lasting less than a minute. She was on Depakote for 1 year but that was discontinued 2 years ago. Prior to that she said she had ?daily seizures? for 5 years. She has never seen a neurologist or had EEG studies. Related Data Home Medications ?Medication ?Instructions ?Recorded ?Confirmed atenolol 25 mg tablet 25 mg PO DAILY 06/15/25 06/15/25 buprenorphine 8 mg-naloxone 2 mg 1 film buccal DAILY 06/15/25 06/15/25 sublingual film (Suboxone) buspirone 10 mg tablet 10 mg PO BID 06/15/25 06/15/25 clozapine 200 mg tablet 200 mg PO BID 06/15/25 06/15/25 duloxetine 60 mg capsule,delayed 60 mg PO DAILY 06/15/25 06/15/25 release famotidine 20 mg tablet 20 mg PO DAILY 06/15/25 06/15/25 fluphenazine decanoate 25 mg/mL 12.5 mg IM Q2W 06/15/25 06/15/25 injection solution Previous Rx's ?Medication ?Instructions ?Recorded docusate sodium 250 mg capsule 250 mg PO DAILY #10 caps 01/13/19 apixaban 5 mg (74 tabs) tablets in 5 mg PO BID #74 ea 05/03/25 a dose pack (Eliquis DVT-PE Treat 30D Start) Allergies Allergy/AdvReac Type Severity Reaction Status Date / Time ibuprofen Allergy Hives Verified 07/05/25 16:45 Patient History Medical History (Updated 07/05/25 @ 19:32 by Mariusz Cheng MD) Pulmonary embolism ADD (attention deficit disorder) PTSD (post-traumatic stress disorder) Anxiety Schizoaffective disorder, bipolar type Social History Smoking Status: Current every day smoker Smoking Status: Current every day smoker tobacco type: vaping Exam Narrative Exam Narrative: General: Alert and conversant. No distress. Appears well nourished and well hydrated Craniofacial: Mild tenderness of the occiput with no swelling or bony deformity. Otherwise No evidence of trauma. Nontender and no swelling. Eyes: PERRLA EOMI conjunctiva clear HEENT: Tragus, pinnae nontender. Tympanic membranes normal appearance. Oropharynx clear with no swelling, exudate or asymmetry of the pharynx. Nares clear. No sinus tenderness Neck: No tenderness or adenopathy. No meningismus. No JVD Lungs: Clear to auscultation with good air movement. No wheezing, rales or rhonchi. No respiratory distress Cardiac: Regular rate and rhythm with no appreciable murmur or gallop Abdomen: Soft, nontender with no distention or masses. Normal bowel sounds. No rebound or guarding Musculoskeletal: Tenderness of the right 1st and 2nd toes with no deformity. Otherwise Exam of the extremities, axial spine and ribcage reveals no deformity, bony tenderness or swelling. Range of motion intact Neuro: Alert and oriented. Cranial nerves, motor, sensory and cerebellar all grossly intact. No focal deficit Skin: Warm and normal color. No rashes Psychological: Normal affect and interaction. No evidence of delusion or psychosis. Normal mood. Initial Vital Signs Initial Vital Signs: Vital Signs Temperature 97.5 F L 07/05/25 16:45 Pulse Rate 97 H 07/05/25 16:45 Respiratory Rate 16 07/05/25 16:45 Blood Pressure 129/57 L 07/05/25 16:45 Pulse Oximetry 96 07/05/25 16:45 Oxygen Delivery Method Room Air 07/05/25 16:45 Course Orders Ordered: ED Orders 07/05/25 17:36 CT head/brain wo con Stat 07/05/25 17:38 CBC Auto Diff [Complete Blood Count AUTO DIFF] Stat CMP [Comprehensive Metabolic Panel] Stat Discontinued Medications Acetaminophen (Acetaminophen 325 Mg Tablet) 975 mg PO NOW ONE Stop: 07/05/25 17:37 Last Admin: 07/05/25 18:07 Dose: 975 mg Documented By: AMI Hydrocodone Bitart/Acetaminophen (Hydrocodone/Acet 5/325 Prepack) 1 bottle MISC DIRECTED ONE Stop: 07/05/25 19:30 Last Admin: 07/05/25 19:48 Dose: 1 bottle Documented By: BRIAN Sodium Chloride (Normal Saline 0.9%) 1,000 mls @ 1,000 mls/hr IV BOLUS ONE Stop: 07/05/25 18:34 Last Infusion: 07/05/25 19:18 Dose: Infused Documented By: Admin: 07/05/25 18:06 Dose: 1,000 mls/hr Documented By: AMI Lorazepam (Lorazepam 2 Mg/Ml Inj) 0.5 mg IV NOW ONE Stop: 07/05/25 17:38 Last Admin: 07/05/25 18:07 Dose: 0.5 mg Documented By: AMI Tramadol HCl (Tramadol 50 Mg Tablet) 50 mg PO NOW ONE Stop: 07/05/25 17:37 Last Admin: 07/05/25 18:07 Dose: 50 mg Documented By: AMI Vital Signs Vital signs: Vital Signs - 8 hr 07/05/25 16:45 07/05/25 17:26 07/05/25 17:30 Temperature 97.5 F L Pulse Rate 97 H 86 Respiratory Rate 16 17 Blood Pressure 129/57 L 107/58 L Pulse Oximetry 96 96 Oxygen Delivery Method Room Air 07/05/25 17:30 07/05/25 18:00 07/05/25 18:30 Temperature Pulse Rate 78 74 72 Respiratory Rate 17 Blood Pressure Pulse Oximetry 94 97 97 Oxygen Delivery Method Room Air 07/05/25 18:33 07/05/25 18:33 07/05/25 19:00 Temperature Pulse Rate 64 Respiratory Rate Blood Pressure 111/58 L 120/61 Pulse Oximetry 98 Oxygen Delivery Method 07/05/25 19:00 07/05/25 19:30 07/05/25 19:31 Temperature Pulse Rate 60 61 Respiratory Rate Blood Pressure 115/61 Pulse Oximetry 99 97 Oxygen Delivery Method Room Air 07/05/25 19:31 Temperature Pulse Rate 62 Respiratory Rate Blood Pressure Pulse Oximetry 97 Oxygen Delivery Method MDM - Head Injury Lab Data Attestation: I reviewed the patient's lab results. 07/05/25 17:38 07/05/25 17:38 Labs: Lab Results 12/16/25 Range/Units 17:38 WBC 5.9 (4.5-11.0) X10^3/uL RBC 4.54 (4.0-5.2) X10^6/uL Hgb 13.4 (12.0-16.0) g/dL Hct 39.4 (36-46) % MCV 86.9 (80-100) fL MCH 29.4 (26-34) PG MCHC 33.9 (30-36) % RDW 13.3 (11.6-14.8) % Plt Count 171 (150-400) X10^3/uL Neut % (Auto) 43.4 L (50-75) % Lymph % (Auto) 43.5 H (25-40) % [place] % (Auto) 7.0 (3-14) % Eos % (Auto) 5.8 H (2-4) % Baso % (Auto) 0.3 (0-2) % Neut # (Auto) 2600 (6978-0981) /uL Lymph # (Auto) 2600 (6527-6438) /uL [place] # (Auto) 400 (0-900) /uL Eos # (Auto) 300 (0-450) /uL Baso # (Auto) 0 (0-100) /uL Sodium 140 (137-145) mmol/L Potassium 4.2 (3.4-5.1) mmol/L Chloride 103 (98-107) mmol/L Carbon Dioxide 29 (22-32) mmol/L BUN 10 (7-17) mg/dL Creatinine 0.64 (0.52-1.04) mg/dL Estimated GFR > 60 (>60) mL/min BUN/Creatinine Ratio 15.6 (6-22) Glucose 144 H (70-99) mg/dL Calcium 9.3 (8.4-10.2) mg/dL Total Bilirubin 0.3 (0.2-1.3) mg/dL AST 30 (14-36) IU/L ALT 10 (<35) IU/L Alkaline Phosphatase 63 (38-126) U/L Total Protein 7.3 (6.3-8.2) g/dL Albumin 4.3 (3.5-5.0) g/dL Globulin 3.0 (1.7-4.1) g/dL Albumin/Globulin Ratio 1.4 (1.0-2.8) Imaging Data CT scan - head: Attestation: I personally reviewed and interpreted this imaging study as follows: My Impression: No acute intracranial pathology or trauma Extremity x-ray #1: Radiologist's Impression: Right foot radiographs from 07/01/2025: Impression: IMPRESSION: Nondisplaced 2nd proximal phalanx and 1st distal phalanx fractures as described. MDM Narrative Medical decision making narrative: Patient's lab work is reassuring. No further symptoms in the ER. I suspect she had a nonepileptic seizure or spell of some kind since she is not on any medication currently and she can describe the symptoms of the entire event. She did have minor closed head injury by history with negative head CT and no current symptoms other than moderate headache. Prior to discharge she asked if she could have some medicine for her toe fractures. This was a different issue for which she was seen at an outpatient clinic and had radiographs. She has been walking on the foot and I looked up her imaging. Apparently she said she had a spasm in her leg and kicked a hard object 4 days ago. She was seen for this problem and had radiographs was not given the results until yesterday. Radiographs reveal a longitudinal slightly impacted intra-articular fracture of the 2nd proximal phalanx head and a questionable nondisplaced fracture of the medial base of the 1st distal phalanx. I discussed these fractures with Dr. Vela, orthopedics. She says these are okay to be treated with a flat shoe and she will see the patient in follow-up to make sure they are healing correctly. Patient had what she thought was a seizure. I believe these are probably nonepileptic seizures and had a resultant minor head injury with negative head CT. No evidence of concussion. She also had a previous injury to her right 1st and 2nd toes with fractures that I discussed with orthopedics. Plan is hydration, rest and home care. Follow up closely with her provider to address all of her health issues including further delineation if necessary for her seizures or pseudoseizures. Also she will follow up as needed with Orthopedics for her toe fractures. Discharge Plan Departure Patient Disposition: Home Clinical Impression: Minor closed head injury, Psychogenic nonepileptic seizure, Fracture of toe of right foot Instructions: Toe Fracture, DI for Seizure Disorder -- Adult, Closed Head Injury, DI for Seizure (Not Epilepsy/Seizure Disorder) Activity Restrictions/Additional Instructions: Plan: Hydration, rest and supportive care. Flat shoe for right toe fractures. [id number] and prescription pain medicine. Follow up with your doctor and/or Orthopedics to reassess toe fractures within 1 week Prescriptions: No Action famotidine 20 mg tablet 20 mg PO DAILY duloxetine 60 mg capsule,delayed release(DR/EC) 60 mg PO DAILY clozapine 200 mg tablet 200 mg PO BID buprenorphine-naloxone [Suboxone] 8-2 mg film 1 film buccal DAILY fluphenazine decanoate 25 mg/mL solution 12.5 mg IM Q2W buspirone 10 mg tablet 10 mg PO BID atenolol 25 mg tablet 25 mg PO DAILY Eliquis DVT-PE Treat 30D Start 5 mg (74 tabs) tablets,dose pack 5 mg PO BID Qty: 74 0RF docusate sodium 250 mg Capsule 250 mg PO DAILY Qty: 10 0RF Referrals: Vinh Cat, PHD, [employer] APPRENTICE [Primary Care Provider, Psychiatry] Lauren Vela DO [Physician, Orthopedic Surgery] Referral Note: Follow-up in 1-2 weeks to reassess toe fractures Clinical Impression: Fracture of toe of right foot Stand Alone Forms: Patient Portal/API
--- NOTE | 2025-07-05 17:36 | DI.CT.S_ITS ---
PROCEDURE: CT HEAD/BRAIN WO CON INDICATIONS: Head trauma, LOC, on Eliquis TECHNIQUE: Noncontrast 4.5 mm thick angled axial sections acquired from the foramen magnum to the vertex, with coronal and sagittal reformats. For radiation dose reduction, the following was used: automated exposure control, adjustment of mA and/or kV according to patient size. COMPARISON: [facility], CT, CT HEAD/BRAIN WO CON, 05/05/2025, 14:10. FINDINGS: Image quality: Diagnostic. CSF spaces: Basal cisterns are patent. No extra-axial fluid collections. Ventricles are normal in size and shape. Brain: No midline shift. No intracranial mass effect or hemorrhage. [place]- white matter interface is normal. Skull and face: Calvarium and visualized facial bones are intact, without suspicious lesions. Sinuses: Visualized sinuses and mastoids are clear. IMPRESSION: No acute intracranial pathology. Dictated by: Tato Santizo M.D. on 07/05/2025 at 17:47 Approved by: Tato Santizo M.D. on 07/05/2025 at 17:49
[2025-07-05 17:41] LABS: Add Manual Diff / Slide Review NO; Hematocrit 39.4 % (36-46); Hemoglobin 13.4 g/dL (12.0-16.0); Lymphocytes Absolute Auto 2600 /uL (1100-4500); Mean Corpuscular HGB Conc 33.9 % (30-36); Mean Corpuscular Hemoglobin 29.4 PG (26-34); Mean Corpuscular Volume 86.9 fL (80-100); Platelet Count 171 X10^3/uL (150-400)
[2025-07-05 17:49] LABS: Alanine Aminotransferase 10 IU/L (<35); Albumin 4.3 g/dL (3.5-5.0); Albumin Globulin Ratio 1.4 (1.0-2.8); Alkaline Phosphatase 63 U/L (38-126); Blood Urea Nitrogen 10 mg/dL (7-17); Calcium 9.3 mg/dL (8.4-10.2); Carbon Dioxide 29 mmol/L (22-32); Chloride 103 mmol/L (98-107); Estimated Glomerular Filt Rate > 60 mL/min (>60); Globulin 3.0 g/dL (1.7-4.1); Glucose 144 mg/dL (70-99); HEMOLYSIS 22 (0-50); Potassium 4.2 mmol/L (3.4-5.1); Sodium 140 mmol/L (137-145); Total Protein 7.3 g/dL (6.3-8.2)
[2025-07-05] MEDS: SODIUM CHLORIDE 0.9% 1,000 ML 1000 ML IV (18:06)
[2025-07-05] MEDS: ACETAMINOPHEN 325 MG TABLET 975 MG PO (18:07)
== END 2025-07-05 19:57 | disposition home or self-care (01) ==
PROVIDERS: Emergency Provider Emergency Medicine; PCP Registered Nurse
DX: S92.514A Nondisplaced fracture of proximal phalanx of right lesser toe(s), initial encounter for closed fracture (principal); S92.534A Nondisplaced fracture of distal phalanx of right lesser toe(s), initial encounter for closed fracture; S09.90XA Unspecified injury of head, initial encounter; F44.5 Conversion disorder with seizures or convulsions; R11.2 Nausea with vomiting, unspecified; M54.2 Cervicalgia; W22.8XXA Striking against or struck by other objects, initial encounter
CPT/HCPCS: 29550; 36415; 70450; 80053; 85025; 96361; 96374; 99284; J2060; J7030

== ENCOUNTER 2025-07-08 07:03 | Emergency (ER) | payer OTHER, SELFPAY ==
[2025-07-08] VITALS (12 sets, daily range): BP systolic 122–140; BP diastolic 63–82; PULSE 71–105; RESP 18; TEMP 37.2; O2SAT 95–99; BMI 37.2
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
--- NOTE | 2025-07-08 07:44 | DI.CT.S_ITS ---
PROCEDURE: CT HEAD/BRAIN WO CON INDICATIONS: fall on eliquis, questionable loc TECHNIQUE: Noncontrast 4.5 mm thick angled axial sections acquired from the foramen magnum to the vertex, with coronal and sagittal reformats. For radiation dose reduction, the following was used: automated exposure control, adjustment of mA and/or kV according to patient size. COMPARISON: [facility], CT, CT HEAD/BRAIN WO CON, 07/05/2025, 17:39. FINDINGS: Image quality: Diagnostic. CSF spaces: Basal cisterns are patent. No extra-axial fluid collections. Ventricles are normal in size and shape. Brain: No midline shift. No intracranial mass effect or hemorrhage. [place]- white matter interface is normal. Skull and face: Calvarium and visualized facial bones are intact, without suspicious lesions. Sinuses: Visualized sinuses and mastoids are clear. IMPRESSION: No acute intracranial pathology. Dictated by: Shekhar Watts M.D. on 07/08/2025 at 8:19 Approved by: Shekhar Watts M.D. on 07/08/2025 at 8:19
--- NOTE | 2025-07-08 07:46 | DI.RAD.S_ITS ---
PROCEDURE: XR CHEST 1V INDICATIONS: trauma TECHNIQUE: One view of the chest was acquired. COMPARISON: [facility], CR, XR CHEST 1V, 05/03/2025, 12:06. FINDINGS: Surgical changes and devices: None. Lungs and pleura: Lungs are clear. No pleural effusions or pneumothorax. Mediastinum: Mediastinal contours appear normal. Heart size is normal. Bones and chest wall: No suspicious bony lesions. Overlying soft tissues appear unremarkable. IMPRESSION: No acute cardiopulmonary abnormality is seen. Dictated by: Camacho Mendoza M.D. on 07/08/2025 at 8:24 Approved by: Camacho Mendoza M.D. on 07/08/2025 at 8:25
--- NOTE | 2025-07-08 07:46 | DI.RAD.S_ITS ---
PROCEDURE: XR SHOULDER RT MIN 2V INDICATIONS: trauma TECHNIQUE: 3 views of the shoulder were acquired. COMPARISON: [facility], CR, XR SHOULDER LT 2+ VIEWS, 07/08/2025, 7:38. FINDINGS: Bones: Inferior subluxation of the humeral head related to the glenoid, of uncertain significance. No fracture. No suspicious bony lesions. Visualized ribs appear intact. Soft tissues: No suspicious soft tissue calcifications. IMPRESSION: Inferior subluxation of the humeral head related to the glenoid, of uncertain significance. No fracture. Dictated by: Camacho Mendoza M.D. on 07/08/2025 at 8:25 Approved by: Camacho Mendoza M.D. on 07/08/2025 at 8:26
--- NOTE | 2025-07-08 07:46 | DI.RAD.S_ITS ---
PROCEDURE: XR PELVIS 1-2V INDICATIONS: trauma TECHNIQUE: 1 view(s) of the pelvis acquired. COMPARISON: None. FINDINGS: Bones: No fractures or dislocations. No suspicious bony lesions. Soft tissues: Visualized bowel gas pattern is normal. No suspicious soft tissue calcifications. IMPRESSION: No acute bony abnormality. Dictated by: Camacho Mendoza M.D. on 07/08/2025 at 8:24 Approved by: Camacho Mendoza M.D. on 07/08/2025 at 8:24
--- NOTE | 2025-07-08 07:46 | DI.RAD.S_ITS ---
PROCEDURE: XR SHOULDER LT MIN 2V INDICATIONS: trauma TECHNIQUE: 3 views of the shoulder were acquired. COMPARISON: [facility], CR, XR SHOULDER RT 2+ VIEWS, 07/08/2025, 7:36. FINDINGS: Bones: Inferior subluxation of the humeral head related to the glenoid, of uncertain significance. No fracture. No suspicious bony lesions. Visualized ribs appear intact. Soft tissues: No suspicious soft tissue calcifications. IMPRESSION: Inferior subluxation of the humeral head related to the glenoid, of uncertain significance. No acute fracture. Dictated by: Camacho Mendoza M.D. on 07/08/2025 at 8:27 Approved by: Camacho Mendoza M.D. on 07/08/2025 at 8:27
[2025-07-08 08:31] LABS: Add Manual Diff / Slide Review NO; Hematocrit 38.0 % (36-46); Hemoglobin 12.7 g/dL (12.0-16.0); Lymphocytes Absolute Auto 2100 /uL (1100-4500); Mean Corpuscular HGB Conc 33.4 % (30-36); Mean Corpuscular Hemoglobin 29.2 PG (26-34); Mean Corpuscular Volume 87.4 fL (80-100); Platelet Count 150 X10^3/uL (150-400)
[2025-07-08] MEDS: ACETAMINOPHEN 325 MG TABLET 650 MG PO (08:32)
[2025-07-08 08:43] LABS: Alanine Aminotransferase 10 IU/L (<35); Albumin 4.0 g/dL (3.5-5.0); Albumin Globulin Ratio 1.4 (1.0-2.8); Alkaline Phosphatase 63 U/L (38-126); Blood Urea Nitrogen 13 mg/dL (7-17); Calcium 9.1 mg/dL (8.4-10.2); Carbon Dioxide 25 mmol/L (22-32); Chloride 108 mmol/L (98-107); Estimated Glomerular Filt Rate > 60 mL/min (>60); Globulin 2.9 g/dL (1.7-4.1); Glucose 94 mg/dL (70-99); HEMOLYSIS 40 (0-50); Potassium 4.4 mmol/L (3.4-5.1); Sodium 141 mmol/L (137-145); Total Protein 6.9 g/dL (6.3-8.2)
[2025-07-08 09:00] LABS: HCG Quantitative /Beta subunit < 2.39 mIU/mL
--- NOTE | 2025-07-08 09:28 | DI.RAD.S_ITS ---
PROCEDURE: XR FOOT RT MIN 3V INDICATIONS: pain TECHNIQUE: 3 views of the foot were acquired. COMPARISON: [facility], CR, XR FOOT RT MIN 3V, 07/01/2025, 11:21. FINDINGS: Bones: The previously noted nondisplaced base of distal phalanx of great toe fracture is not identified. Subacute distal aspect proximal phalanx fracture of 2nd toe extending to the articular surface, now subacute with some early bony resorption. No suspicious bony lesions. Soft tissues: No tibiotalar joint effusion. Achilles tendon appears normal. IMPRESSION: Subacute proximal phalanx 2nd toe fracture extending to the PIP joint. Great toe distal phalanx fracture not identified. Dictated by: Camacho Mendoza M.D. on 07/08/2025 at 10:03 Approved by: Camacho Mendoza M.D. on 07/08/2025 at 10:05
== END 2025-07-08 11:20 | disposition home or self-care (01) ==
PROVIDERS: Emergency Provider Student in an Organized Health Care Education/Training Program; PCP Registered Nurse
DX: S92.911A Unspecified fracture of right toe(s), initial encounter for closed fracture (principal); M25.512 Pain in left shoulder; M25.511 Pain in right shoulder; M25.552 Pain in left hip; F25.0 Schizoaffective disorder, bipolar type; F43.10 Post-traumatic stress disorder, unspecified; F98.8 Other specified behavioral and emotional disorders with onset usually occurring in childhood and adolescence; W17.89XA Other fall from one level to another, initial encounter
CPT/HCPCS: 36415; 70450; 71045; 72170; 73030; 73630; 80053; 84702; 85025; 99284; A9270

== ENCOUNTER → 2025-07-12 08:22 | Outpatient (CLI) | payer OTHER, SELFPAY ==
[2025-07-12 08:48] LABS: Add Manual Diff / Slide Review NO; Hematocrit 39.5 % (36-46); Hemoglobin 13.2 g/dL (12.0-16.0); Lymphocytes Absolute Auto 2500 /uL (1100-4500); Mean Corpuscular HGB Conc 33.5 % (30-36); Mean Corpuscular Hemoglobin 29.1 PG (26-34); Mean Corpuscular Volume 86.9 fL (80-100); Platelet Count 191 X10^3/uL (150-400)
== END ==
PROVIDERS: PCP Registered Nurse; Referring Provider Registered Nurse; Visit Provider Registered Nurse
DX: Z79.899 Other long term (current) drug therapy (principal)
CPT/HCPCS: 36415; 80159; 85025